=== PATIENT | female | born 1950 | race Caucasian/White ===

== ENCOUNTER → 2016-08-17 | Outpatient (CLI) | payer MEDICARE, OTHER ==
--- NOTE | 2016-08-17 10:34 | REP ---
Clinical: Sciatica. Technique: AP, lateral, bilateral oblique and coned-down views of the lumbosacral spine. Findings: Chronic levoconvex scoliosis is appreciated along with advanced multilevel degenerative changes including bridging osteophytes, endplate sclerosis/irregularity and disc space narrowing as well as hypertrophic facet changes. Alignment in the sagittal plane is maintained. There is no obvious acute fracture / compression injury or subluxation. Impression: Chronic levoconvex scoliosis and advanced multilevel degenerative disc osteophyte complexes.
== END ==
LOC: M CLY 09:34
PROVIDERS: ATTEND Nurse Practitioner
DX: M54.31 Sciatica, right side (principal); M41.9 Scoliosis, unspecified; M25.78 Osteophyte, vertebrae; Z23 Encounter for immunization
CPT/HCPCS: 72110; 90715; 90732; G0009

== ENCOUNTER → 2016-08-29 | Outpatient (REF) | payer MEDICARE, OTHER ==
[2016-08-29 17:16] LABS: MEAN CORPUSCULAR HEMOGLOBIN 29.2 pg (27.0-33.0); MEAN CORPUSCULAR HGB CONC 33.2 g/dl (32.0-36.5); MEAN CORPUSCULAR VOLUME 87.9 fl (80.0-96.0); WHITE BLOOD COUNT 6.2 K/mm3 (4.0-10.0)
[2016-08-29 17:45] LABS: ALBUMIN 3.6 GM/DL (3.2-5.2); ALBUMIN/GLOBULIN RATIO 1.16 (1.00-1.93); ALKALINE PHOSPHATASE 95 U/L (45-117); ALT/SGPT 37 U/L (12-78); ANION GAP 4 MEQ/L (8-16); AST/SGOT 19 U/L (15-37); BILIRUBIN,TOTAL 0.4 MG/DL (0.2-1.0); BLOOD UREA NITROGEN 15 MG/DL (7-18); CALCIUM LEVEL 9.7 MG/DL (8.8-10.2); CARBON DIOXIDE LEVEL 31 MEQ/L (21-32); CHLORIDE LEVEL 105 MEQ/L (98-107); CHOLESTEROL LEVEL 203 MG/DL (<200); CREATININE FOR GFR 0.69 MG/DL (0.55-1.02); GLOMERULAR FILTRATION RATE > 60.0 (>45); GLUCOSE, FASTING 100 MG/DL (80-110); POTASSIUM SERUM 4.4 MEQ/L (3.5-5.1); SODIUM LEVEL 140 MEQ/L (136-145); TOTAL PROTEIN 6.7 GM/DL (6.4-8.2); TRIGLYCERIDES LEVEL 262 MG/DL (<150)
== END ==
LOC: M SFHCCLAY 10:17
PROVIDERS: ATTEND Nurse Practitioner
DX: R53.83 Other fatigue (principal); Z79.899 Other long term (current) drug therapy

== ENCOUNTER → 2016-09-04 | Outpatient (CLI) | payer MEDICARE, OTHER ==
--- NOTE | 2016-09-04 15:15 | REPMRS ---
Patient History The patient states she has not had a clinical breast exam in over a year. Patient is postmenopausal. Family history of breast cancer in mother at age 80, pancreatic cancer in mother at age 95, breast cancer in maternal aunt at age 50 or over, and breast cancer in maternal aunt at age 75. Digital Woman Screen Mammo: September 04, 2016 - Exam #: [id number] Bilateral CC and MLO view(s) were taken. Technologist: Kimberlyn Foreman, Technologist Prior study comparison: January 29, 2015, digital woman screen mammo performed at [facility]. January 27, 2014, digital woman screen mammo performed at [facility]. FINDINGS: There are scattered fibroglandular densities. There has been no change in the appearance of the mammogram from the prior studies. There is a mild amount of residual fibroglandular tissue which is fairly symmetric. There is no interval development of dominant mass, architectural distortion, or clustered microcalcification suggestive of malignancy. ASSESSMENT: BI-RADS/ACR category 1 mammogram. Negative. Recommendation Routine screening mammogram in 1 year (for women over age 40). This mammogram was interpreted with the aid of an FDA-approved computer-aided dectection system. Electronically Signed By: Dilshad Hill MD 09/04/16 0680
== END ==
LOC: M WHC 13:30
PROVIDERS: ATTEND Nurse Practitioner
DX: Z12.31 Encounter for screening mammogram for malignant neoplasm of breast (principal); Z78.0 Asymptomatic menopausal state; Z80.3 Family history of malignant neoplasm of breast; Z80.0 Family history of malignant neoplasm of digestive organs

== ENCOUNTER → 2016-09-21 | Outpatient (CLI) | payer MEDICARE, OTHER ==
--- NOTE | 2016-09-21 12:39 | REP ---
Clinical: Cervical and thoracic pain. Technique: AP, lateral, flexion/extension, bilateral oblique, and open-mouth views of the cervical spine. Findings: Advanced multilevel degenerative changes include osteophytosis, endplate sclerosis/heterogeneity and disc space narrowing. Open mouth view demonstrates normal C1-C2 articulation and odontoid process. Oblique views demonstrate hypertrophic changes to the uncinate processes primarily at the C5-6, C6-7 levels. No acute fracture. Impression: Advanced multilevel degenerative disc osteophyte complexes.
--- NOTE | 2016-09-21 12:40 | REP ---
Clinical: Thoracic pain. Technique: AP, lateral and swimmer's views. Findings: Evaluation is limited by technique. Alignment and kyphosis maintained. Moderate to advanced degenerative changes include bridging osteophytes, endplate sclerosis and disc space narrowing throughout the visualized thoracic spine. No obvious compression fracture identified. Impression: Advanced multilevel degenerative changes.
== END ==
LOC: M CLY 11:27
PROVIDERS: ATTEND Nurse Practitioner
DX: M25.78 Osteophyte, vertebrae (principal); M54.6 Pain in thoracic spine
CPT/HCPCS: 72050; 72072; G0463

== ENCOUNTER → 2017-09-05 | Outpatient (CLI) | payer MEDICARE, OTHER | LOC: M WHC 12:50 | DX: Z12.31 Encounter for screening mammogram for malignant neoplasm of breast (principal); M81.0 Age-related osteoporosis without current pathological fracture | CPT/HCPCS: 77080 ==

== ENCOUNTER → 2017-09-12 | Outpatient (CLI) | payer MEDICARE, OTHER | LOC: M RAD 10:25 | DX: N63.22 Unspecified lump in the left breast, upper inner quadrant (principal); N64.1 Fat necrosis of breast | CPT/HCPCS: 77066 ==

== ENCOUNTER → 2018-02-20 | Outpatient (REF) | payer MEDICARE, OTHER | LOC: M LAB REF 12:24 | DX: N39.0 Urinary tract infection, site not specified (principal) | CPT/HCPCS: 87186 ==

== ENCOUNTER → 2018-02-25 | Outpatient (REF) | payer MEDICARE, OTHER | LOC: M SFHCCLAY 15:25 | DX: E78.5 Hyperlipidemia, unspecified (principal); R73.01 Impaired fasting glucose; Z53.8 Procedure and treatment not carried out for other reasons ==

== ENCOUNTER → 2018-02-27 | Outpatient (REF) | payer MEDICARE, OTHER ==
[2018-02-27 16:58] LABS: ALBUMIN 3.7 GM/DL (3.2-5.2); ALBUMIN/GLOBULIN RATIO 1.23 (1.00-1.93); ALKALINE PHOSPHATASE 97 U/L (45-117); ALT/SGPT 43 U/L (12-78); ANION GAP 5 MEQ/L (8-16); AST/SGOT 26 U/L (7-37); BILIRUBIN,TOTAL 0.6 MG/DL (0.2-1.0); BLOOD UREA NITROGEN 24 MG/DL (7-18); CALCIUM LEVEL 9.7 MG/DL (8.8-10.2); CARBON DIOXIDE LEVEL 32 MEQ/L (21-32); CHLORIDE LEVEL 102 MEQ/L (98-107); CHOLESTEROL LEVEL 188 MG/DL (<200); CHOLESTEROL RISK RATIO 5.529 (<5); CREATININE FOR GFR 0.69 MG/DL (0.55-1.30); GLOMERULAR FILTRATION RATE > 60.0 (>45); GLUCOSE, FASTING 92 MG/DL (70-100); HDL CHOLESTEROL 34 MG/DL (>40); LDL CHOLESTEROL 103 MG/DL (<100); NON-HDL-C 154 MG/DL; POTASSIUM SERUM 4.5 MEQ/L (3.5-5.1); SODIUM LEVEL 139 MEQ/L (136-145); TOTAL PROTEIN 6.7 GM/DL (6.4-8.2); TRIGLYCERIDES LEVEL 254 MG/DL (<150)
[2018-02-27 17:02] LABS: ESTIMATED AVERAGE GLUCOSE 134 MG/DL (60-110); HEMOGLOBIN A1c 6.3 %
== END ==
LOC: M SFHCCLAY 13:31
DX: R39.15 Urgency of urination (principal); E78.5 Hyperlipidemia, unspecified; R73.01 Impaired fasting glucose
CPT/HCPCS: 80053

== ENCOUNTER → 2018-03-29 | Outpatient (CLI) | payer MEDICARE, OTHER ==
--- NOTE | 2018-03-29 17:08 | REP ---
Digital diagnostic unilateral left breast mammography with CAD, 3-D tomosynthesis, and focused left breast sonography. History: Comparison mammography from September 12, 2017 was BIRADS category 3 because of an ill-defined parenchymal opacity with central fat density at the area of a palpable lump in this patient who is status post bilateral breast reduction mammoplasty. 6-month follow-up imaging was recommended. Comparison is also made with prior study from September 04, 2016. Findings: A skin marker is again affixed to the skin at the site of the palpable abnormality in the inferior and medial quadrant of the left breast. The associated parenchymal opacity visible on mammography has decreased in size and overall density. It still contains a fat density center and is consistent with benign fat necrosis. It has decreased in prominence. No new finding is seen. The left-sided mammographic views are otherwise unremarkable. Sonographic findings: Focused left breast sonography is performed at the site of the palpable lump. At 7 o'clock in the left breast there is a 1.1 x 1.1 x 1.1 cm hypoechoic area consistent with fat necrosis. This has decreased from previous measurements of 2.8 x 2.1 x 1.4 cm. Impression: BIRADS category 2 benign findings. Area of fat necrosis inferiorly and medially in the left breast regressing in size and appearance. Repeat bilateral screening mammography recommended in August 2018. BI-RADS/ACR category 2 mammogram. Benign finding(s). Routine annual screening mammography (for women over age 40). This mammogram was interpreted with the aid of an FDA-approved computer-aided detection system. The patient states she had a clinical breast exam in June 2017. The patient letter being requested is m#[id number]. Electronically Signed by Fabio Ibanez MD 03/29/2018 07:26 P
== END ==
LOC: M RAD 11:41
PROVIDERS: ATTEND Family Medicine
DX: R92.8 Other abnormal and inconclusive findings on diagnostic imaging of breast (principal)
CPT/HCPCS: 76642; 77065; G0279

== ENCOUNTER → 2018-05-28 | Outpatient (REF) | payer MEDICARE, OTHER ==
[2018-05-29 11:53] LABS: BASO # 0.1 10^3/uL (0.0-0.2); BASO % 0.6 % (0.0-1.0); EOS # 0.2 10^3/uL (0.0-0.50); EOS % 1.9 % (0.0-3.0); HEMATOCRIT 44.3 % (36.0-47.0); HEMOGLOBIN 14.3 g/dl (12.0-15.5); LYMPH # 2.2 10^3/uL (1.5-4.5); LYMPH % 20.8 % (24.0-44.0); MEAN CORPUSCULAR HEMOGLOBIN 28.5 pg (27.0-33.0); MEAN CORPUSCULAR HGB CONC 32.3 g/dl (32.0-36.5); MEAN CORPUSCULAR VOLUME 88.2 fl (80.0-96.0); MONO # 0.7 10^3/uL (0.0-0.8); NEUTROPHILS # 7.2 10^3/uL (1.8-7.7); NEUTROPHILS % 69.4 % (36.0-66.0); PLATELET COUNT, AUTOMATED 216 10^3/uL (150-450); RED BLOOD COUNT 5.02 10^6/uL (4.00-5.40); WHITE BLOOD COUNT 10.4 10^3/uL (4.0-10.0)
[2018-05-29 12:18] LABS: ERYTHROCYTE SEDIMENTATION RATE 28 mm/hr (0-30)
[2018-05-29 12:33] LABS: RHEUMATOID FACTOR QUANT < 10.0 IU/ML (<15.0)
[2018-06-01 00:06] LABS: ANA (HEP2) Negative (.); CYCLIC CITRULLINATED PEPTIDE 68 units (0-19); Lyme Disease IgG/IgM Antibodie <0.91 ISR (0.00-0.90); Lyme Disease IgM Ab Quantitati <0.80 index (0.00-0.79)
== END ==
LOC: M SFHCCLAY 15:35
PROVIDERS: ATTEND Family Medicine
DX: I10 Essential (primary) hypertension (principal); M48.062 Spinal stenosis, lumbar region with neurogenic claudication; M79.10 Myalgia, unspecified site
CPT/HCPCS: 84443; 85025; 85652; 86038; 86140; 86200; 86431; 86617; G0463

== ENCOUNTER 2018-07-12 13:36 | Inpatient (IN) | payer MEDICARE, OTHER ==
[~2018-07-12] VITALS: Ht 157.5 cm; Wt 107.3 kg
[2018-07-12] MEDS ORDERED: HYDR25TAB PO (14:12)
[2018-07-12] MEDS ORDERED: CETI10CH PO (14:12)
[2018-07-12] MEDS ORDERED: LIVA2TAB PO (14:12)
[2018-07-12] MEDS ORDERED: IRBE300T12 PO (14:13)
[2018-07-12] MEDS ORDERED: PARO20TA4 PO (14:13)
[2018-07-12] MEDS ORDERED: HYDR-3713 PO (14:13)
[2018-07-12] MEDS ORDERED: METO25TA4 PO (14:13)
[2018-07-12] MEDS ORDERED: ATIV1TAB10 PO (14:13)
[2018-07-12 14:32] LABS: BASO % 0.3 % (0.0-1.0); EOS % 0.2 % (0.0-3.0); HEMATOCRIT 41.3 % (36.0-47.0); HEMOGLOBIN 13.5 g/dl (12.0-15.5); LYMPH # 1.5 10^3/uL (1.5-4.5); LYMPH % 14.9 % (24.0-44.0); MEAN CORPUSCULAR HEMOGLOBIN 28.3 pg (27.0-33.0); MEAN CORPUSCULAR HGB CONC 32.7 g/dl (32.0-36.5); MEAN CORPUSCULAR VOLUME 86.6 fl (80.0-96.0); MONO # 0.5 10^3/uL (0.0-0.8); MONO % 5.4 % (0.0-5.0); NEUTROPHILS # 7.7 10^3/uL (1.8-7.7); NEUTROPHILS % 78.7 % (36.0-66.0); PLATELET COUNT, AUTOMATED 243 10^3/uL (150-450); RED BLOOD COUNT 4.77 10^6/uL (4.00-5.40); WHITE BLOOD COUNT 9.7 10^3/uL (4.0-10.0)
--- NOTE | 2018-07-12 14:45 | REP ---
Portable chest, 02:29 p.m., single AP view, the patient semi upright: There are no comparisons. The lung riojas are clear. The cardiac size is normal. The sivan, mediastinum, and skeletal structures are unremarkable. Impression: Negative portable chest. Electronically Signed by Dilshad Montana MD 07/12/2018 02:37 P
[2018-07-12 15:09] LABS: ACETAMINOPHEN LEVEL < 2.0 UG/ML (10.0-30.0); ALBUMIN 3.9 GM/DL (3.2-5.2); ALT/SGPT 46 U/L (12-78); BILIRUBIN,DIRECT 0.1 MG/DL (0.0-0.2); BILIRUBIN,TOTAL 0.4 MG/DL (0.2-1.0); BLOOD UREA NITROGEN 14 MG/DL (7-18); CALCIUM LEVEL 9.6 MG/DL (8.8-10.2); CARBON DIOXIDE LEVEL 26 MEQ/L (21-32); CHLORIDE LEVEL 108 MEQ/L (98-107); CPK CREATINE PHOSPHOKINASE 144 U/L (26-192); CREATININE FOR GFR 0.69 MG/DL (0.55-1.30); ETHYL ALCOHOL (ETHANOL) < 0.003 % (0.000-0.010); GLOMERULAR FILTRATION RATE > 60.0 (>45); GLUCOSE, FASTING 118 MG/DL (70-100); POTASSIUM SERUM 3.8 MEQ/L (3.5-5.1); SALICYLATE LEVEL < 1.7 MG/DL (5.0-30.0); SODIUM LEVEL 141 MEQ/L (136-145)
[2018-07-12 15:15] LABS: AMPHETAMINES LEVEL URINE NEGATIVE (NEGATIVE); BARBITURATES URINE NEGATIVE (NEGATIVE); BENZODIAZEPINES URINE NEGATIVE (NEGATIVE); CANNABINOIDS URINE NEGATIVE (NEGATIVE); COCAINE METABOLITE URINE NEGATIVE (NEGATIVE); METHADONE URINE NEGATIVE (NEGATIVE); OPIATES URINE NEGATIVE (NEGATIVE); PHENCYCLIDINE URINE NEGATIVE (NEGATIVE)
[2018-07-12] MEDS ORDERED: LORazepam 1 MG TAB PO PRN (16:00)
[2018-07-12] MEDS ORDERED: IRBE300T10 PO (16:29)
[2018-07-12] MEDS ORDERED: CINN500C15 PO (16:29)
[2018-07-12] MEDS ORDERED: SB A10TA4 PO (16:29)
[2018-07-12] MEDS ORDERED: CRAN400C PO (16:29)
[2018-07-12] MEDS ORDERED: FLON1SPR NARES (16:29)
[2018-07-12] MEDS ORDERED: LOVA1CAP17 PO (16:29)
[2018-07-12] MEDS ORDERED: METOPROLOL TART 25 MG TABLET PO ONE (16:30)
[2018-07-12] MEDS: IRBESARTAN 150 MG TAB PO ONE ×2 (16:57→16:59)
[2018-07-12] MEDS ORDERED: VITAD1000T PO (18:10)
[2018-07-12] MEDS ORDERED: zolPIDEM TARTRATE 5 MG TAB PO PRN (18:45)
[2018-07-12] MEDS ORDERED: amLODIPine 10 MG TAB PO ONE (19:00)
--- NOTE | 2018-07-12 19:37 | ECGEPIP ---
Stationary ECG Study [facility] - ED Test Date: 2018-07-12 Pat Name: KRYSTINA DEGROOT Department: Room: - Gender: F Personnel Director: TC : 1950 Requested By: SAI Kinney Order Number: [id number] Reading MD: Liset Nevarez Measurements Intervals Richardson Rate: 95 P: 17 HI: 173 QRS: -4 QRSD: 94 T: 25 QT: 306 QTc: 385 Interpretive Statements SINUS RHYTHM MODERATE VOLTAGE CRITERIA FOR LVH, CONSIDER NORMAL VARIANT NONSPECIFIC T-WAVE ABNORMALITY CW 01/17/[address] T WAVE CHANGES Electronically Signed On 07-12-2018 19:37:14 EDT by Liset Nevarez
--- NOTE | 2018-07-12 20:22 | HPE ---
DATE OF ADMISSION: 07/12/2018 CHIEF COMPLAINT: Suicide attempt. Intentional drug overdose with Paxil. HISTORY OF PRESENT ILLNESS: This is a 67-year-old female with past medical history significant for depression, hypertension, hyperlipidemia, impaired fasting glucose and allergic rhinitis, presents to the emergency room, brought in by EMS and family due to attempted suicide attempt with Paxil. Patient has been having significant family turmoil for the past few months. According to her, she has been having a strange relationship with her children and have not been able to see their grandchildren for the past four months. The patient has encouraged the to go through counseling to repair these relationships, however, he has been resistant and despite trying, patient's has been very tightlipped and not cooperative. This has led to daily arguments and oftentimes the does not say anything which further frustrates the . Also, the had been the primary caregiver for her mother who had recently passed about a month ago. She had dedicated a Pixt[employer] service to her mother last evening and wanted the to come with her. During the argument, the had become much more withdrawn. They had further discussed if they should separate. He would like to take the dog and she would take the cats. The patient was extremely upset when at 6:30 the was not dressed to go to the mass for her mother and encouraged him to accompany her. She felt very bad that she had to go alone and was extremely upset and told him that he was hurting her emotionally. The patient then returned to her house and found her 's keys around 6:30 and wallet without the transit driver's license. The patient's could not be found anywhere. He left a note for her saying that he was sorry that it had to end this way. Patient became worried and went to the neighbor across the street. They started to look around the house, but could not find him or the dog. The neighbor asked the patient to call 911. Several patrol cars came to the residence and could not find the patient's . Into the night, she was told that they would use blood hounds and that they would go out again in search in the morning. However, the police did find her in a field across the street from their residence. He was found to have shot the dog with a pistol and also shot himself. This was then relayed to the patient who was surrounded by her family, her two sons, her sister, and her two [id number]. At that point she felt like she wanted to with him and decided to go into the room and take the narcotics that were left over from her past previous surgeries. The patient could not find the bottle and therefore found Paxil. She was followed by her son who grabbed her by the throat and scraped the pills off her tongue before she could swallow and ingest any of the Paxil pills. She was subsequently brought to the emergency room for admission for suicide attempt by intentional Paxil overdose. In the ER her vitals were stable. She was noted to have high blood pressure and hysterical crying, blaming herself and saying that it was her fault that her shot himself with a gun as well as shooting the dog. Her blood pressure was 197/88. She was subsequently given her home medications of metoprolol and Avapro with subsequent improvement in her blood pressure to 157/75. The patient remains tearful and admitted to wanting to continually try to harm herself "so I can join my ". When asked if she had a good support system, she said "my children have their own lives. They do not need me. No one needs me. I need to join my ". At this point, a phone call out to the psychiatrist medication nurse, Dr. Fany Pandya has been made. He will be seeing the patient in consult. She will be admitted to the medical floor for observation overnight with a sitter. Her sister would like to stay with her overnight as well. Patient denies any homicidal ideation, but is still making suicidal statements without a definite suicidal plan. PAST MEDICAL HISTORY: Hypertension. Hyperlipidemia. Impaired glucose. Allergic rhinitis. Obesity. BMI 43.3. ALLERGIES: ATIVAN causing hyperactivity. ATORVASTATIN causing myalgia. SIMVASTATIN causing myalgia. CRESTOR causing myalgia. PAST SURGICAL HISTORY: Tonsillectomy. Tubal ligation. Bartholin's cyst removal. Ganglion cyst. D and C times two. Colonoscopy 2009. Breast reduction 2016. HOME MEDICATIONS: Please see below. FAMILY HISTORY: age 67 father with lung cancer and myocardial infarction ([place]). Mother age 95 pancreatic cancer, diagnosed with hypertension. Siblings, one diagnosed with hypertension and coronary artery disease. Sons are alive. She has one sister and three sons. SOCIAL HISTORY: Patient previously lived with her who has killed himself yesterday. She is a nonsmoker. Does not drink any alcohol. No E-cigarettes. She is retired. REVIEW OF SYSTEMS: Negative 12 point systems reviewed aside from positive findings in HPI. Patient has no complaints of palpitations, nausea, vomiting, diarrhea. PHYSICAL EXAMINATION: Temperature 98.3, pulse 74, respiratory rate 16, blood pressure 165/81, 94% on 1 liter nasal cannula. GENERAL: Patient is in no respiratory distress. She is grieving and crying at the bedside. HEENT: Pupils are round and reactive. Not dilated. Patient could not participate with extraocular muscle testing as she is extremely upset. There is no nasal flaring or use of respiratory accessory muscles. No jugular venous distention. She has dry mucous membranes. NECK: Supple. LUNGS: Clear to auscultation. No wheezing, rales or rhonchi. HEART: S1, S2, sinus rhythm. No murmurs, rubs or gallops. ABDOMEN: Obese. Soft, nontender. Nondistended. Normoactive bowel sounds. No hepatosplenomegaly. No abdominal bruits. EXTREMITIES: No cyanosis, clubbing or any pitting edema. NEUROLOGICAL: Patient is awake, alert and oriented times three. Was able to provide the entire history. There is no facial asymmetry. Speech is fluent. No myoclonus or hyperreflexia. No rigidity or trismus. LABORATORY DATA: White count 9.7, hemoglobin 13, hematocrit 41, platelet count 242. Neutrophils 78. Monocytes 5.4, lymphocytes 14.9. Sodium 141, potassium 3.8, chloride 108, bicarbonate 26, BUN 14, creatinine 0.67. Glucose 118. Calcium 9.6. Total bilirubin 0.4. Direct bilirubin 0.1. AC 25, LD 46, alkaline phosphatase 100, total CK 144. Total protein 7, albumin 3.9. TSH 1.15. ASSESSMENT AND PLAN: 1. Suicide attempt with intentional drug overdose. Patient's son was able to remove all pills. The patient did not ingest any of the Paxil medications. Clinically speaking, she is not exhibiting any lethargy, any confusion, was able to provide entire history. She had no hyperthermia, tachycardia, no diaphoresis, nausea, vomiting, diarrhea or dilated pupils. Patient was not agitated. She was not lethargic. On physical exam had no myoclonus or hyperreflexia, rigidity or trismus. At this time she is admitted to telemetry unit with a sitter. 2. Supposed Paxil overdose per the history. In the patient and son's interview, the patient did not ingest any Paxil medication during the suicide attempt. Clinically, she is not exhibiting any neurovascular or autonomic instability at this time. By itself paroxetine has rarely been shown to cause serotonin syndrome, but she will be monitored on the medical floor for the next 24 hours with a sitter and telemetry. 3. Severe depression and grieving secondary to 's traumatic suicide. Patient will be evaluated by psychiatrist, Dr. Fany Pandya and most likely will need inpatient mental health unit admission. At this time, she is at risk of doing harm to herself and a sitter has been provided. Family is available at this time to be supportive. The patient's sister says that she can live with her once the patient is deemed clinically and psychiatrically clear. 4. Deep venous thrombosis (DVT) prophylaxis with compression stockings. 5. Hypertension. Uncontrolled, secondary to emotional stress. She has been resumed on her home dose of Avapro and metoprolol. Norvasc will be given for her comfort and will be provided Ativan and xanax for anxiety. [facility]
[2018-07-12] MEDS: METOPROLOL TART 25 MG TABLET PO SCH (20:24)
[2018-07-12 22:10] VITALS: BP 166/76
[2018-07-13] MEDS: ALPRAZolam 0.25 MG TAB PO PRN ×2 (03:13→12:26)
[2018-07-13 06:00] VITALS: BP 137/66
[2018-07-13 07:19] LABS: ALBUMIN 3.4 GM/DL (3.2-5.2); ALT/SGPT 43 U/L (12-78); BILIRUBIN,TOTAL 0.6 MG/DL (0.2-1.0); BLOOD UREA NITROGEN 14 MG/DL (7-18); CALCIUM LEVEL 8.7 MG/DL (8.8-10.2); CARBON DIOXIDE LEVEL 28 MEQ/L (21-32); CHLORIDE LEVEL 107 MEQ/L (98-107); CREATININE FOR GFR 0.64 MG/DL (0.55-1.30); GLOMERULAR FILTRATION RATE > 60.0 (>45); GLUCOSE, FASTING 118 MG/DL (70-100); POTASSIUM SERUM 3.7 MEQ/L (3.5-5.1); SODIUM LEVEL 141 MEQ/L (136-145); TOTAL PROTEIN 6.6 GM/DL (6.4-8.2)
[2018-07-13] MEDS: CHLORTHALIDONE 25 MG TAB PO SCH (07:52)
[2018-07-13] MEDS: IRBESARTAN 150 MG TAB PO SCH (07:52)
[2018-07-13] MEDS: METOPROLOL TART 25 MG TABLET PO SCH ×2 (07:53→22:02)
[2018-07-13] MEDS ORDERED: amLODIPine 5 MG TAB PO SCH (09:00)
[2018-07-13] MEDS: CETIRIZINE (ZyrTEC) 10 MG TAB PO SCH (09:00)
[2018-07-13] MEDS: **hydrALAZINE** 10 MG TAB PO SCH ×2 (12:00→17:59)
[2018-07-13] MEDS ORDERED: PILL CRUSHER/CUTTER 1 EACH XX PRN (12:15)
[2018-07-13] MEDS ORDERED: FLUTICASONE PROP 0.05% NASAL SPRAY 16 GM (FLONASE) NARES PRN (12:15)
--- NOTE | 2018-07-13 12:17 | IPNPDOC ---
Date Seen The patient was seen on 07/13/18. Progress Note SUBJECTIVE: Pt slept well. She says,"I have to move on. My sister can help me find an apartment in [place], because we might get into each other's nerves sometimes. It's too much to stay near the water in [place]. I have to give that up." She denies any homicidal or suicidal plans. Sitter and pt's sister at the bedside. "I want to go home." PHYSICAL EXAMINATION: VITALS: PLS SEE BELOW GENERAL: Patient is in no respiratory distress. AAO x 3 HEENT: Pupils are round and reactive. Not dilated. There is no nasal flaring or use of respiratory accessory muscles. No jugular venous distention. NECK: Supple. LUNGS: Clear to auscultation. No wheezing, rales or rhonchi. HEART: S1, S2, sinus rhythm. No murmurs, rubs or gallops. ABDOMEN: Obese. Soft, nontender. Nondistended. Normoactive bowel sounds. No hepatosplenomegaly. No abdominal bruits. EXTREMITIES: No cyanosis, clubbing or any pitting edema. NEUROLOGICAL: Patient is awake, alert and oriented times three. Was able to provide the entire history. There is no facial asymmetry. Speech is fluent. No myoclonus or hyperreflexia. No rigidity or trismus. LABORATORY DATA, IMAGING STUDIES, MICROBIOLOGY: PLS SEE BELOW ASSESSMENT AND PLAN: This is a 67-year-old female with past medical history significant for depression, hypertension, hyperlipidemia, impaired fasting glucose and allergic rhinitis, presents to the emergency room, brought in by EMS and family due to attempted suicide attempt with Paxil. Patient has been having significant family turmoil for the past few months. According to her, she has been having a strange relationship with her children and have not been able to see their grandchildren for the past four months. The patient has encouraged the to go through counseling to repair these relationships, however, he has been resistant and despite trying, patient's has been very tightlipped and not cooperative. This has led to daily arguments and oftentimes the does not say anything which further frustrates the . Also, the had been the primary caregiver for her mother who had recently passed about a month ago. She had dedicated a mass service to her mother last evening and wanted the to come with her. During the argument, the had become much more withdrawn. They had further discussed if they should separate. He would like to take the dog and she would take the cats. The patient was extremely upset when at 6:30 the was not dressed to go to the [facility] for her mother and encouraged him to accompany her. She felt very bad that she had to go alone and was extremely upset and told him that he was hurting her emotionally. The patient then returned to her house and found her 's keys around 6:30 and wallet without the route driver coin machines's license. The patient's could not be found anywhere. He left a note for her saying that he was sorry that it had to end this way. Patient became worried and went to the neighbor across the street. They started to look around the house, but could not find him or the dog. The neighbor asked the patient to call 911. Several patrol cars came to the residence and could not find the patient's . Into the night, she was told that they would use blood hounds and that they would go out again in search in the morning. However, the police did find her in a field across the street from their residence. He was found to have shot the dog with a pistol and also shot himself. This was then relayed to the patient who was surrounded by her family, her two sons, her sister, and her two [id number]. At that point she felt like she wanted to with him and decided to go into the room and take the narcotics that were left over from her past previous surgeries. The patient could not find the bottle and therefore found Paxil. She was followed by her son who grabbed her by the throat and scraped the pills off her tongue before she could swallow and ingest any of the Paxil pills. She was subsequently brought to the emergency room for admission for suicide attempt by intentional Paxil overdose. In the ER her vitals were stable. She was noted to have high blood pressure and hysterical crying, blaming herself and saying that it was her fault that her shot himself with a gun as well as shooting the dog. Her blood pressure was 197/88. She was subsequently given her home medications of metoprolol and Avapro with subsequent improvement in her blood pressure to 157/75. The patient remains tearful and admitted to wanting to continually try to harm herself "so I can join my ". When asked if she had a good support system, she said "my children have their own lives. They do not need me. No one needs me. I need to join my ". At this point, a phone call out to the psychiatrist global implementation manager, Dr. Fany Pandya has been made. He will be seeing the patient in consult. She will be admitted to the medical floor for observation overnight with a sitter. Her sister would like to stay with her overnight as well. Patient denies any homicidal ideation, but is still making suicidal statements without a definite suicidal plan. Suicide attempt with intentional drug overdose. Patient's son was able to remove all pills. The patient did not ingest any of the Paxil medications. Clinically speaking, she is not exhibiting any lethargy, any confusion, was able to provide entire history. She had no hyperthermia, tachycardia, no diaphoresis, nausea, vomiting, diarrhea or dilated pupils. Patient was not agitated. She was not lethargic. On physical exam had no myoclonus or hyperreflexia, rigidity or trismus. At this time she is admitted to telemetry unit with a sitter. Attempted Intentional Paroxetine ingestion. Per the patient and son's interview, the patient did not ingest any Paxil medication during the suicide attempt. Clinically, she is not exhibiting any neurovascular or autonomic instability at this time. By itself paroxetine has rarely been shown to cause serotonin syndrome, but she will be monitored on the medical floor for the next 24 hours with a sitter . Severe depression and grieving secondary to 's traumatic suicide. Patient will be evaluated by psychiatrist, Dr. Fany Pandya and most likely will need inpatient mental health unit admission. At this time, she is at risk of doing harm to herself and a sitter has been provided. Family is available at this time to be supportive. The patient's sister says that she can live with her once the patient is deemed clinically and psychiatrically clear. Deep venous thrombosis (DVT) prophylaxis with compression stockings. Hypertension. Uncontrolled, secondary to emotional stress. She has been resumed on her home dose of Avapro and metoprolol. Norvasc will be given for her comfort and will be provided Ativan and xanax for anxiety. disposition: awaiting psychiatric eval. [facility] admission VS, I&O, 24H, Saeed Vital Signs/I&O Vital Signs Date Time Temp Pulse Resp B/P (MAP) Pulse Ox O2 Delivery O2 Flow Rate FiO2 07/13/18 07:53 77 178/88 07/13/18 06:00 98.0 17 99 07/12/18 21:45 Room Air I&O- Last 24 Hours up to 6 AM 07/13/18 06:00 Intake Total 0 ml Output Total 0 ml Balance 0 ml Laboratory Data 24H LABS Laboratory Tests 2 07/12/18 14:19: Immature Granulocyte % (Auto) 0.5, White Blood Count 9.7, Red Blood Count 4.77, Hemoglobin 13.5, Hematocrit 41.3, Mean Corpuscular Volume 86.6, Mean Corpuscular Hemoglobin 28.3, Mean Corpuscular Hemoglobin Concent 32.7, Red Cell Distribution Width 13.6, Platelet Count 243, Neutrophils (%) (Auto) 78.7H, Lymphocytes (%) (Auto) 14.9L, Monocytes (%) (Auto) 5.4H, Eosinophils (%) (Auto) 0.2, Basophils (%) (Auto) 0.3, Neutrophils # (Auto) 7.7, Lymphocytes # (Auto) 1.5, Monocytes # (Auto) 0.5, Eosinophils # (Auto) 0.0, Basophils # (Auto) 0.0, Nucleated Red Blood Cells % (auto) 0.0, Urine Color YELLOW, Urine Appearance CLEAR, Urine pH 6.0, Urine Specific [place] 1.023, Urine Protein NEGATIVE, Urine Glucose (UA) NEGATIVE, Urine Ketones NEGATIVE, Urine Blood NEGATIVE, Urine Nitrite NEGATIVE, Urine Bilirubin NEGATIVE, Urine Urobilinogen 0.2, Urine Leukocyte Esterase TRACEH, Urine WBC (Auto) 5H, Urine RBC (Auto) 2, Urine Hyaline Casts (Auto) 0, Urine Bacteria (Auto) NEGATIVE, Urine Squamous Epithelial Cells 0, Urine Mucus (Auto) SMALL, Urine Sperm (Auto) , Anion Gap 7L, Glomerular Filtration Rate > 60.0, Calcium Level 9.6, Aspartate Amino Transf (AST/SGOT) 25, Alanine Ami notransferase (ALT/SGPT) 46, Alkaline Phosphatase 100, Total Bilirubin 0.4, Direct Bilirubin 0.1, Total Creatine Kinase 144, Total Protein 7.0, Albumin 3.9, Albumin/Globulin Ratio 1.26, Thyroid Stimulating Hormone (TSH) 1.150, Salicylates Level < 1.7L, Urine Amphetamines Screen NEGATIVE, Urine Benzo diazepines Screen NEGATIVE, Urine Opiates Screen NEGATIVE, Urine Methadone Screen NEGATIVE, Acetaminophen Level < 2.0L, Urine Barbiturates Screen NEGATIVE, Urine Phencyclidine Screen NEGATIVE, Urine Cocaine Metabolite Screen NEGATIVE, Urine Cannabinoids Screen NEGATIVE, Ethyl Alcohol Level < 0.003 07/13/18 06:29: Anion Gap 6L, Glomerular Filtration Rate > 60.0, Calcium Level 8.7L, Aspartate Amino Transf (AST/SGOT) 23, Alanine Aminotransferase (ALT/SGPT) 43, Alkaline Phosphatase 87, Total Bilirubin 0.6, Total Protein 6.6, Albumin 3.4, Albumin/Globulin Ratio 1.06, Blood Urea Nitrogen 14, Creatinine 0.64, Sodium Level 141, Potassium Level 3.7, Chloride Level 107, Carbon Dioxide Level 28 CBC/BMP Laboratory Tests 07/12/18 14:19 Red Blood Count 4.77, Mean Corpuscular Volume 86.6, Mean Corpuscular Hemoglobin 28.3, Mean Corpuscular Hemoglobin Concent 32.7, Red Cell Distribution Width 13.6, Neutrophils (%) (Auto) 78.7 H, Lymphocytes (%) (Auto) 14.9 L, Monocytes (%) (Auto) 5.4 H, Eosinophils (%) (Auto) 0.2, Basophils (%) (Auto) 0.3, Neutrophils # (Auto) 7.7, Lymphocytes # (Auto) 1.5, Monocytes # (Auto) 0.5, Eosinophils # (Auto) 0.0, Basophils # (Auto) 0.0 07/13/18 06:29 Calcium Level 8.7 L, Aspartate Amino Transf (AST/SGOT) 23, Alanine Aminotransferase (ALT/SGPT) 43, Alkaline Phosphatase 87, Total Bilirubin 0.6, Total Protein 6.6, Albumin 3.4 Microbiology Microbiology 07/12/18 Urine Culture - Final, Complete GAIL DENNISON MD Jul 13, 2018 12:17
[2018-07-13] MEDS ORDERED: cloNIDine 0.1 MG TAB PO ONE (12:30)
[2018-07-13] MEDS ORDERED: amLODIPine 10 MG TAB PO ONE (12:30)
[2018-07-13] MEDS ORDERED: amLODIPine 5 MG TAB PO ONE (12:45)
[2018-07-13 13:30] VITALS: BP 170/100
[2018-07-13 15:39] VITALS: BP 160/100
[2018-07-13 15:49] VITALS: BP 120/64
--- NOTE | 2018-07-13 18:22 | ECGEPIP ---
Stationary ECG Study [facility] Test Date: 2018-07-13 Pat Name: KRYSTINA DEGROOT Department: Room: [place] [address] Gender: F Behavioral Health Care Manager: TALISHA : 1950 Requested By: GAIL Ferrer Order Number: [id number] Reading MD: Levi Grant Measurements Intervals [place] Rate: 69 P: 29 OK: 159 QRS: -7 QRSD: 95 T: 31 QT: 387 QTc: 417 Interpretive Statements SINUS RHYTHM Left ventricular hypertrophy BY ANDREAS Farfan from earlier same day Electronically Signed On 07-13-2018 18:22:09 EDT by Levi Grant
[2018-07-13 22:00] VITALS: BP 157/73
[2018-07-14] MEDS: ALPRAZolam 0.25 MG TAB PO PRN (01:57)
[2018-07-14] MEDS: **hydrALAZINE** 10 MG TAB PO SCH ×3 (05:25→12:00)
[2018-07-14 06:00] VITALS: BP 141/72
[2018-07-14] MEDS: CETIRIZINE (ZyrTEC) 10 MG TAB PO SCH (08:36)
[2018-07-14 08:41] VITALS: BP 142/70
[2018-07-14] MEDS: IRBESARTAN 150 MG TAB PO SCH (08:41)
[2018-07-14] MEDS: METOPROLOL TART 25 MG TABLET PO SCH (08:41)
[2018-07-14] MEDS: CHLORTHALIDONE 25 MG TAB PO SCH (08:41)
[2018-07-14] MEDS ORDERED: amLODIPine 10 MG TAB PO SCH (09:00)
[2018-07-14 12:37] VITALS: BP 154/76
[2018-07-14] MEDS ORDERED: HYDR-3910 PO (12:42)
--- NOTE | 2018-07-14 13:30 | IPNPDOC ---
Date Seen The patient was seen on 07/14/18. Progress Note SUBJECTIVE: Awaiting discharge recommendations from Dr. Pandya. Per pt, she was to be discharged home with her sister, and will be remaining here [facility] for a few days to make arrangements with family. Pt will be supervised by her sister 16/10 , and will eventually move to [place] with her sister. She denies any headache. no suicidal plan. She c/o insomnia withno relief with ambien. She has had a paradoxical reaction to ativan causing hyperactivity. She is requesting something to relax her and to sleep. PHYSICAL EXAMINATION: VITALS: PLS SEE BELOW GENERAL: Patient is in no respiratory distress. AAO x 3 HEENT: Pupils are round and reactive. Not dilated. There is no nasal flaring or use of respiratory accessory muscles. No jugular venous distention. NECK: Supple. LUNGS: Clear to auscultation. No wheezing, rales or rhonchi. HEART: S1, S2, sinus rhythm. No murmurs, rubs or gallops. ABDOMEN: Obese. Soft, nontender. Nondistended. Normoactive bowel sounds. No hepatosplenomegaly. No abdominal bruits. EXTREMITIES: No cyanosis, clubbing or any pitting edema. NEUROLOGICAL: Patient is awake, alert and oriented times three. Was able to provide the entire history. There is no facial asymmetry. Speech is fluent. No myoclonus or hyperreflexia. No rigidity or trismus. LABORATORY DATA, IMAGING STUDIES, MICROBIOLOGY: PLS SEE BELOW ASSESSMENT AND PLAN: This is a 67-year-old female with past medical history significant for depression, hypertension, hyperlipidemia, impaired fasting glucose and allergic rhinitis, presents to the emergency room, brought in by EMS and family due to attempted suicide attempt with Paxil. Patient has been having significant family turmoil for the past few months. According to her, she has been having a strange relationship with her children and have not been able to see their grandchildren for the past four months. The patient has encouraged the to go through counseling to repair these relationships, however, he has been resistant and despite trying, patient's has been very tightlipped and not cooperative. This has led to daily arguments and oftentimes the does not say anything which further frustrates the . Also, the had been the primary caregiver for her mother who had recently passed about a month ago. She had dedicated a mass service to her mother last evening and wanted the to come with her. During the argument, the had become much more withdrawn. They had further discussed if they should separate. He would like to take the dog and she would take the cats. The patient was extremely upset when at 6:30 the was not dressed to go to the mass for her mother and encouraged him to accompany her. She felt very bad that she had to go alone and was extremely upset and told him that he was hurting her emotionally. The patient then returned to her house and found her 's keys around 6:30 and wallet without the hook up driver's license. The patient's could not be found anywhere. He left a note for her saying that he was sorry that it had to end this way. Patient became worried and went to the neighbor across the street. They started to look around the house, but could not find him or the dog. The neighbor asked the patient to call 911. Several patrol cars came to the residence and could not find the patient's . Into the night, she was told that they would use blood hounds and that they would go out again in search in the morning. However, the police did find her in a field across the street from their residence. He was found to have shot the dog with a pistol and also shot himself. This was then relayed to the patient who was surrounded by her family, her two sons, her sister, and her two [id number]. At that point she felt like she wanted to with him and decided to go into the room and take the narcotics that were left over from her past previous surgeries. The patient could not find the bottle and therefore found Paxil. She was followed by her son who grabbed her by the throat and scraped the pills off her tongue before she could swallow and ingest any of the Paxil pills. She was subsequently brought to the emergency room for admission for suicide attempt by intentional Paxil overdose. In the ER her vitals were stable. She was noted to have high blood pressure and hysterical crying, blaming herself and saying that it was her fault that her shot himself with a gun as well as shooting the dog. Her blood pressure was 197/88. She was subsequently given her home medications of metoprolol and Avapro with subsequent improvement in her blood pressure to 157/75. The patient remains tearful and admitted to wanting to continually try to harm herself "so I can join my ". When asked if she had a good support system, she said "my children have their own lives. They do not need me. No one needs me. I need to join my ". At this point, a phone call out to the psychiatrist video production assistant, Dr. Fany Pandya has been made. He will be seeing the patient in consult. She will be admitted to the medical floor for observation overnight with a sitter. Her sister would like to stay with her overnight as well. Patient denies any homicidal ideation, but is still making suicidal statements without a definite suicidal plan. Suicide attempt with intentional drug overdose. Patient's son was able to remove all pills. The patient did not ingest any of the Paxil medications. Clinically speaking, she is not exhibiting any lethargy, any confusion, was able to provide entire history. She had no hyperthermia, tachycardia, no diaphoresis, nausea, vomiting, diarrhea or dilated pupils. Patient was not agitated. She was not lethargic. On physical exam had no myoclonus or hyperreflexia, rigidity or trismus. At this time she is admitted to telemetry unit with a sitter. Attempted Intentional Paroxetine ingestion. Per the patient and son's interview, the patient did not ingest any Paxil medication during the suicide attempt. Clinically, she is not exhibiting any neurovascular or autonomic instability at this time. By itself paroxetine has rarely been shown to cause serotonin syndrome, but she will be monitored on the medical floor for the next 24 hours with a sitter . Severe depression and grieving secondary to 's traumatic suicide. Patient will be evaluated by psychiatrist, Dr. Fany Pandya and most likely will need inpatient mental health unit admission. At this time, she is at risk of doing harm to herself and a sitter has been provided. Family is available at this time to be supportive. The patient's sister says that she can live with her once the patient is deemed clinically and psychiatrically clear. Insomnia failed on ambien. will need to discuss with psychiatrist if pt is mentally st able to be given a few days supply of meds. Anxiety has had a paradoxical reaction to ativan causing hyperactivity. Deep venous thrombosis (DVT) prophylaxis with compression stockings. Hypertension. Uncontrolled, secondary to emotional stress. She has been resumed on her home dose of Avapro and metoprolol. Norvasc will be given for her comfort and will be provided Ativan and xanax for anxiety. disposition: awaiting psychiatricrecommendations VS, I&O, 24H, Fishbone Vital Signs/I&O Vital Signs Date Time Temp Pulse Resp B/P (MAP) Pulse Ox O2 Delivery O2 Flow Rate FiO2 07/14/18 12:37 154/76 (102) 07/14/18 08:41 63 07/14/18 06:00 96.7 16 94 07/12/18 21:45 Room Air I&O- Last 24 Hours up to 6 AM 07/14/18 06:00 Intake Total 1080 ml Balance 1080 ml Laboratory Data Microbiology Microbiology 07/12/18 Urine Culture - Final, Complete GAIL DENNISON MD Jul 14, 2018 13:30
--- NOTE | 2018-07-14 13:45 | MHCR ---
DATE OF CONSULTATION: 07/13/2018 CHIEF COMPLAINT: She has felt distressed. SUBJECTIVE: She is 67 years old. She was to her for almost 50 years, he yesterday, and she came in the aftermath of that . Chart is reviewed, patient is interviewed, I also interviewed her sons, Yao and Kennedy, who were here, interviewed them separately. I later interviewed the patient's sister, Clary Lyle, as well, she came in later, again separately. History was also obtained from Dr. Santacruz at length. She and her have been together for many years, she says they had become somewhat more distant over the last few years, she felt he was not engaged with her, more withdrawn, and this had been ongoing, and says they talked about it, about improving their relationship. She feels she made quite a few efforts with varying success, and recently she had organized a service for her mother, who about or so ago, she was in her 90s. She says she had wanted her to attend the service, he suggested he was not sure that it was on, and she said she was upset with his not attending, and she went alone, felt hurt. Upon her return, found that her 's keys were there and wallet, but without the courier delivery driver's license, he could not be found anywhere. She then started looking around the house, could not find their dog either. She called her sons, and her sister, who live in the [facility], and a neighbor came over, they decided to call the police. She then found a note from her , which alluded to his going to take his life. Says a search went on for him the better part of the night. Her sons were there by then, and in the morning, the police found the in a field nearby, he had shot the dog and then killed himself. When that was confirmed, she was informed about it, she became quite agitated, this is when she was at home, and indicated wanting to , and attempted looking for pills, and could not find the bottle, then found a bottle of Paxil. She tried swallowing that, but her son, who was following her, says he swiped them from her mouth, she apparently did not swallow any. At around that time, the other son was talking to the police regarding their father's , and then informed them of the jamie on, and his mother's attempt to take an overdose. Police came and also encouraged her to come here. She was seen by the emergency room physician, and as there were concerns about the possibility of the overdose, was admitted to medicine, and is in Dr. Santacruz's care. Blood pressure was high, but they improved. She remained tearful and indicated wanted to . She said she wanted to join her , and that the children have their own lives. She says she and her had been having difficulties the last few years, and that they had moved over to this area, [place], from [facility] about 8 years or so ago. He was working in the [employer], he was a , and she says he decided to retire, some time last year, and they were concerned about the future, including financially, but things settled. Says she was looking forward to going on trips, various places, with him, but that he did not seem to be interested. She says attempts to engage him were not very successful, and it would lead to arguments. Says she would see the contrast when he was engaged with work where he appeared quite engaged with clients, etc. Further to this, says they were a close family, but that there was quite a disagreement last Evon. Says her sons, she has three sons, [id number], all visiting, and patient, her had requested spending some time, coming summer, with the grandchildren. Says one of the [id number] was quite upset, things became heated, and she feels over relatively trivial matter, and escalated to the point where the children and their families left the patient's place. Says this happened in front of the patient's grandchildren. Says this upset her and her , and attempts were made by her to reach out, reaching out to her children were essentially not reciprocated. Says this was quite painful, she made attempts, including over their birthdays within the last month or two, no acknowledgement of such, and on one occasion, she says one of their sons agreed to meet them at a third venue. She says she went, met with the son, she felt things may begin to improve, but that they had not. She is further saddened by the fact that her sons had not seen their father since Evon, when they had had the disagreement and fight. This has added further to the pain, given yesterday. She has three sons, two are here, they live in the [facility] area. The third son lives in [place]. He is returning from vacation, she has not spoken to him since her 's . She plans to see him in the next day or two. She says she plans to dispose of the house in [place], and move with her sister to [place], to their childhood home, where her sister lives. Says plans to do that in the near future, and then possibly look for a place of her own if need be. Says she and her had suggested that the surviving person move away from the area. Says has support in the local community where she lives, particularly the gnosticism community, and other local friends. Has a friend coming up from out of state at the end of next week, lives in [facility], says has a couple of her in-laws in the [facility] as well. She indicates she has no desire to kill herself and that she is not sure if she would have swallowed the pills even if her son had not intervened. Says has been angry, and upset, but also saddened by the , and the circumstances. Denies has felt pervasively depressed, does say had noticed a diminishing in previous enthusiasms, but mostly related to her and her , has maintained other enthusiasms besides that. Sleep had been a bit up and down for awhile. She says she may have been eating a bit more, does that when stressed. No psychomotor retardation. Currently denies any suicidal thoughts or intents. Acknowledges that she "wanted to be with him" soon after his , but says she has a cheondoism ivette and would rather that God decide the time instead of it being of her choosing. PAST PSYCHIATRIC HISTORY: She has seen Dr. Harrington, primary care, says was on Paxil for about 8 or 9 months, did well, and then stopped it. She says she and her had begun seeing a counselor. No history of suicidal attempts. No history of inpatient psychiatric hospitalization as far as I know. FAMILY PSYCHIATRIC HISTORY: Currently unknown. SUBSTANCE ABUSE HISTORY: None significantly per the patient. PAST MEDICAL HISTORY: Significant for hypertension, hyperlipidemia, impaired glucoses, allergic rhinitis, obesity. SOCIAL HISTORY: Apparently was raised in the [facility], says she and her were together for almost 50 years. She is trained as a nurse. Says she and her decided to move to this area about 8 years ago, bought "a dream house" and then worked on it. Says her had difficulties, particularly when his career was interrupted, in the early 80s, but he rejoined, the [employer], and that served him well, and that tended to continue until recently when he retired. She says they were concerned about finances, but felt that they would manage, and was looking forward to further trips and activities. Says has had her own difficulties with her sister, but that they became closer after their mother's . Mother was in her 90s or so, ago. Says they had their disagreements, but were able to talk about them. Says has local friends as well. Collateral information from patient's sons by and large confirm the patient's narrative, but they suggested that they were not aware of the extent of the difficulties that their parents had. They also touched on difficulties within the family, including matters related to Evon, as mentioned previously. They had not seen their father since that time, and this makes it even more painful, the events of yesterday. They noticed that their mother's demeanor is much more like her usual self today. They plan to be around her, as she leaves the hospital, and also arranging for her being in [place], [place] with her sister. Should she need to stay in the area, which she probably will need to for the next few days, at least one of the sons will be there. Third son, Osbaldo, is arriving in the next day or two. They also acknowledge that previous tensions over the last few months had impacted the family in the broad sense. Son, Yao, indicated there are no more pills in the house, no weapons, they were removed yesterday. Collateral information from her sister, Clary, indicated she is prepared to be around as well, locally, and then will take her sister to a place in [place], which is their childhood home. She is worried about what to watch out for, should her sister need assistance. MENTAL STATUS EXAM: She is in hospital clothes, she is neat, she is cooperative, though initially a bit guarded, but there are no abnormal movements noted, no agitation, no psychomotor retardation. Speech is spontaneous, coherent, quite tearful, particularly when talking about the last couple of days, but reconstitutes quite easily. No formal thought disorder. She currently denies any thoughts of harming herself and denies any homicidal ideas or intents currently. There is no evidence of any psychosis. Does not appear to be internally preoccupied. No delusions elicited. Sensorium is clear. There is no fluctuation of consciousness. She is alert, oriented to time, place and person. Concentration is good. She can spell the word house forwards and backwards, and was able to recall 2 out of 3 objects after 5 minutes with prompting. Intellect average. Judgment questionable. Insight fair. VITAL SIGNS: Blood pressure 144/82, pulse 77, temperature 97.6. It should be noted she has been treated with hypertensives, some of which have been held. Blood pressures are steadying out. ASSESSMENT: Adjustment disorder with disturbance of emotions and conduct. Rule out major depressive disorder. Marital difficulties. Broader family disagreements. 's . in very tragic circumstances, and the patient, in the immediate aftermath, tried overdosing, was quite agitated, and brought here. Currently denies any thoughts of harming herself, sensorium is clear, no evidence of any psychosis, and is future oriented, has local supports, including family. RECOMMENDATIONS: She is not entirely stable at this point to be discharged from the psychiatric standpoint. Continue pursuing further collateral information. The patient has matters to attend to regarding her 's , such as the undertaker's, etcetera, and wishes to address those, particularly starting Sunday. Has supports locally and in the [place] area, has her sons, sister as well. I would suggest reassessment tomorrow, and if feasible, will look at patient going home, and attending to the aftermath of 's . I will also suggest that she look at outpatient followup either in this area, or in the [place] area, where she plans to eventually move to. Meanwhile, as she remains a potential risk, a DCS application has been made. My assessment and recommendations are discussed with the patient and with her sons, in her presence, with her permission. Their questions were answered. The patient is aware of the implications of the DCS application. We would wish to prevent admission to the psychiatry unit, given these circumstances, and further recommendations will be made tomorrow. She does not wish to be admitted to psychiatry, and we will decide on reassessment tomorrow. The assessment took 180 minutes.
[2018-07-14 14:00] VITALS: BP 161/72
[2018-07-14] MEDS ORDERED: XANA0.25 PO (16:39)
[2018-07-14] MEDS ORDERED: TRAZ-160 PO (16:42)
--- NOTE | 2018-07-14 20:40 | DS.PDOC ---
Discharge Summary General Date of Admission Jul 12, 2018 at 15:54 Date of Discharge June Discharge Summary PSYCHIATRIST: DR. MISSY PANDYA DISCHARGE DIAGNOSES: Adjustment disorder with disturbance of emotions and conduct. Rule out major depressive disorder. Marital difficulties. Broader family disagreements. 's . INSOMNIA UNCONTROLLED HTN Suicidal Ideation in the setting of her 's . DISCHARGE MEDS: PLS SEE BELOW HISTORY OF PRESENTING ILLNESS: This is a 67-year-old female with past medical history significant for depression, hypertension, hyperlipidemia, impaired fasting glucose and allergic rhinitis, presents to the emergency room, brought in by EMS and family due to attempted suicide attempt with Paxil. Patient has been having significant family turmoil for the past few months. According to her, she has been having a strange relationship with her children and have not been able to see their grandchildren for the past four months. The patient has encouraged the to go through counseling to repair these relationships, however, he has been resistant and despite trying, patient's has been very tightlipped and not cooperative. This has led to daily arguments and oftentimes the does not say anything which further frustrates the . Also, the had been the primary caregiver for her mother who had recently passed about a month ago. She had dedicated a mass service to her mother last evening and wanted the to come with her. During the argument, the had become much more withdrawn. They had further discussed if they should separate. He would like to take the dog and she would take the cats. The patient was extremely upset when at 6:30 the was not dressed to go to the mass for her mother and encouraged him to accompany her. She felt very bad that she had to go alone and was extremely upset and told him that he was hurting her emotionally. The patient then returned to her house and found her 's keys around 6:30 and wallet without the jinriksha driver's license. The patient's could not be found anywhere. He left a note for her saying that he was sorry that it had to end this way. Patient became worried and went to the neighbor across the street. They started to look around the house, but could not find him or the dog. The neighbor asked the patient to call 911. Several patrol cars came to the residence and could not find the patient's . Into the night, she was told that they would use blood hounds and that they would go out again in search in the morning. However, the police did find her in a field across the street from their residence. He was found to have shot the dog with a pistol and also shot himself. This was then relayed to the patient who was surrounded by her family, her two sons, her sister, and her two [id number]. At that point she felt like she wanted to with him and decided to go into the room and take the narcotics that were left over from her past previous surgeries. The patient could not find the bottle and therefore found Paxil. She was followed by her son who grabbed her by the throat and scraped the pills off her tongue before she could swallow and ingest any of the Paxil pills. She was subsequently brought to the emergency room for admission for suicide attempt by intentional Paxil overdose. In the ER her vitals were stable. She was noted to have high blood pressure and hysterical crying, blaming herself and saying that it was her fault that her shot himself with a gun as well as shooting the dog. Her blood pressure was 197/88. She was subsequently given her home medications of metoprolol and Avapro with subsequent improvement in her blood pressure to 157/75. The patient remains tearful and admitted to wanting to continually try to harm herself "so I can join my ". When asked if she had a good support system, she said "my children have their own lives. They do not need me. No one needs me. I need to join my ". At this point, a phone call out to the psychiatrist environmental health sanitarian, Dr. Fany Pandya has been made. He will be seeing the patient in consult. She will be admitted to the medical floor for observation overnight with a sitter. Her sister would like to stay with her overnight as well. Patient denies any homicidal ideation, but is still making suicidal statements without a definite suicidal plan. HOSPITAL COURSE: Suicide attempt with intentional drug overdose. Patient's son was able to remove all pills. The patient did not ingest any of the Paxil medications. Clinically speaking, she is not exhibiting any lethargy, any confusion, was able to provide entire history. She had no hyperthermia, tachycardia, no diaphoresis, nausea, vomiting, diarrhea or dilated pupils. Patient was not agitated. She was not lethargic. On physical exam had no myoclonus or hyperreflexia, rigidity or trismus. At this time she is admitted to telemetry unit with a sitter. Attempted Intentional Paroxetine ingestion. Per the patient and son's interview, the patient did not ingest any Paxil medication during the suicide attempt. Clinically, she is not exhibiting any neurovascular or autonomic instability at this time. By itself paroxetine has rarely been shown to cause serotonin syndrome, but she will be monitored on the medical floor for the next 24 hours with a sitter . Severe depression and grieving secondary to 's traumatic suicide. Patient will be evaluated by psychiatrist, Dr. Fany Pandya and most likely will need inpatient mental health unit admission. At this time, she is at risk of doing harm to herself and a sitter has been provided. Family is available at this time to be supportive. The patient's sister says that she can live with her once the patient is deemed clinically and psychiatrically clear. Insomnia failed on ambien. will need to discuss with psychiatrist if pt is mentally stable to be given a few days supply of meds. Anxiety has had a paradoxical reaction to ativan causing hyperactivity. Deep venous thrombosis (DVT) prophylaxis with compression stockings. Hypertension. Uncontrolled, secondary to emotional stress. She has been resumed on her home dose of Avapro and metoprolol. Norvasc will be given for her comfort and will be provided Ativan and xanax for anxiety. disposition: PSYCH CLEARED THE PATIENT TO BE DC HOME WITH SISTER. PHYSICAL EXAMINATION: VITALS: PLS SEE BELOW GENERAL: Patient is in no respiratory distress. AAO x 3 HEENT: Pupils are round and reactive. Not dilated. There is no nasal flaring or use of respiratory accessory muscles. No jugular venous distention. NECK: Supple. LUNGS: Clear to auscultation. No wheezing, rales or rhonchi. HEART: S1, S2, sinus rhythm. No murmurs, rubs or gallops. ABDOMEN: Obese. Soft, nontender. Nondistended. Normoactive bowel sounds. No hepatosplenomegaly. No abdominal bruits. EXTREMITIES: No cyanosis, clubbing or any pitting edema. NEUROLOGICAL: Patient is awake, alert and oriented times three. Was able to provide the entire history. There is no facial asymmetry. Speech is fluent. No myoclonus or hyperreflexia. No rigidity or trismus. LABORATORY DATA, IMAGING STUDIES, MICROBIOLOGY: PLS SEE BELOW TIME SPENT ON DISCHARGE: 30 MIN Vital Signs/I&Os Vital Signs Date Time Temp Pulse Resp B/P (MAP) Pulse Ox O2 Delivery O2 Flow Rate FiO2 07/14/18 14:00 97.2 60 18 161/72 (101) 94 07/12/18 21:45 Room Air I&O- Last 24 Hours up to 6 AM 07/14/18 06:00 Intake Total 1080 ml Balance 1080 ml Microbiology Microbiology 07/12/18 Urine Culture - Final, Complete Discharge Medications Scheduled Cetirizine HCl (Allergy) 10 Mg Tablet, 10 MG PO DAILY, (Reported) Cinnamon Bark (Cinnamon) 500 Mg Capsule, 500 MG PO DAILY, (Reported) Cranberry (Cranberry) 400 Mg Capsule, 400 MG PO DAILY, (Reported) Hydralazine HCl (Hydralazine HCl) 25 Mg Tablet, 25 MG PO TID Hydrochlorothiazide (Hydrochlorothiazide) 25 Mg Tablet, 25 MG PO DAILY, (Reported) Irbesartan (Irbesartan) 300 Mg Tablet, 300 MG PO DAILY, (Reported) Metoprolol Tartrate (Metoprolol Tartrate) 25 Mg Tablet, 25 MG PO BID, (Reported) [place]-3 Acid Ethyl Esters (Lovaza) 1 Gm Capsule, 2 GM PO BID, (Reported) Paroxetine HCl (Paroxetine) 20 Mg Tablet, 20 MG PO DAILY, (Reported) FILLED IN FEB 2014; BOTTLE IN PT HOME BAG IS EMPTY Pitavastatin Calcium (Livalo) 2 Mg Tablet, 1 MG PO DAILY, (Reported) Vitamin D (Vitamin D3) 1,000 Unit Tablet, 1,000 UNITS PO DAILY, (Reported) Scheduled PRN Alprazolam (Xanax) 0.25 Mg Tablet, 0.25 MG PO QIDP PRN for ANXIETY/AGITATION Fluticasone Propionate (Flonase Allergy Relief) 9.9 Ml [place].susp, 2 SPRAY NARES DAILY PRN for ALLERGY SYMPTOMS, (Reported) Hydrocodone/Acetaminophen (Hydrocodone-Acetamin 5-325 mg) 1 Each Tablet, 1 TAB PO Q4H PRN for pain, (Reported) Lorazepam (Ativan) 0.5 Mg Tablet, 0.5 MG PO QHS PRN for anxiety, (Reported) FILLED IN 2012; BOTTLE IN PT HOME BAG IS EMPTY Trazodone HCl (Trazodone HCl) 50 Mg Tablet, 50 MG PO QHSP PRN for insomnia Allergies Coded Allergies: atorvastatin (Verified Allergy, Mild, 07/12/18) MYALGIA rosuvastatin (Verified Allergy, Mild, 07/12/18) MYALGIA simvastatin (Verified Allergy, Mild, 07/12/18) MYALGIA GAIL DENNISON MD Jul 14, 2018 20:33
--- NOTE | 2018-07-15 10:13 | MHIPN ---
DATE: 07/14/2018 CHIEF COMPLAINT: Feels better. SUBJECTIVE: She is seen for followup. She has been feeling better, says went to sleep, was given Ambien and slept soon afterwards but about an hour and a half or so later she woke up, says is not quite sure why, but suggests that it may have been because of change of shifts for the sitter. After that, started thinking about various things and was unable to sleep much. Says was then eventually given alprazolam at 0.25 mg, felt a bit settled with that, did not feel drowsy, but found that it helped. Has been eating. Has had visitors. Says has been in touch with others and that has been encouraging for her. She is more confident about facing the immediate future with matters to attend to regarding her 's , including seeing the undertaker tomorrow. Saymikayla has been feeling very sad and had been contemplating other factors, matters that may have contributed to her 's . Says had spoken with her [id number], who had seen signs in the patient's 's cognition as well. The patient feels further knowledge on that may give some solace to her. She spoke of a plan for the near future, staying in this area and that she plans to go to her house after leaving the hospital, will have her family there, her sons, sister as well, and then within the next few days, after matters such as the undertaker business and other things that need attend to are taken care of, plans to go to [place] and arrange for moving there. She will be staying with her sister at their childhood home. Denies any thoughts of harming herself. She says that she expects to feel sad, anxious as well, and that she may "breakdown" when she goes home, but plans to remain safe and is reassured by the support that she has. Collateral information, separately, from her sons and her sister, Clary, whom I saw together, indicated that they felt that the patient was ready to go and to address and attend to various aspects that are necessary in the aftermath of her 's . They plan to be around her for the next few weeks, including her son who lives in [place] and will be coming to see her later today. They suggest that the patient looks more like her usual self. MENTAL STATUS EXAMINATION: She is neat. She is cooperative. There is no agitation. No psychomotor retardation. She is coherent. Speech is spontaneous. Affect is broad, at times tearful but reconstitutes quite easily. She denies any suicidal thoughts or intents. No homicidal ideas or intents. Currently no evidence of psychosis. Cognition is grossly intact. Judgment is improved, as is insight. ASSESSMENT: 1. Adjustment disorder with disturbance of emotions and conduct. She has been feeling better overall, demeanor is broader, and she is future oriented. Family, sons and sister, are confident in providing support, including in the immediate future. Safety concerns are discussed and the importance of reaching out, should the need arise, both through local crisis hotline and contacting family, and the emergency services if necessary. I would suggest that this should apply when she is in the [facility] as well. RECOMMENDATIONS: In my opinion, she does not need to remain in the hospital, and may be discharged if that is okay with the hospitalist. She is deemed to be medically stable. Consider short prescription of Ambien 5 mg for the next few nights if needed (would not exceed ten tablets). Consider alprazolam 0.25 mg twice a day as needed for anxiety in the short term as well, for example ten tablets. I would suggest that she not use buspirone, says had been prescribed that by her primary care but had not picked it up. She may require reassessment through primary care or psychiatry should the need arise in the future. May followup locally with counselors and therapists, and in the [facility] when she goes there. She eventually plans to move there in the near future (please see discussion above). She should followup with her primary care provider, Dr. Her, in the near future. Her sister (Clary Enriquez) has been around the patient and is one of her main sources of support, she plans to be with her sister when she is here in this area and when she moves to where her sister lives in [place], [place]. Her sister canceled a trip that she had booked for next week and has canceled that in these circumstances, which is quite understandable. She requests a note indicating that she has needed to be around her sister in the aftermath of her sister's 's , I feel that is reasonable and I will defer that to the hospitalist. We spoke of safety plan. The patient understands that. I spoke about that with her sons and sister as well. They are aware of the emergency services available locally and of contacting them. We met for a total of 50 minutes. ADDENDUM: The patient will be given information on facilities, counselors, therapists, and clinic, including psychiatry, to followup with in this area. Would also suggest that she do that in the [place] area when she moves there. The patient's sister will help arrange for that. Addendum dictated: 07/14/2018 1645 Addendum transcribed: 07/15/2018 0939 francy
== END 2018-07-14 17:39 | disposition home or self-care (01) | DRG 880 ==
LOC: M ED 13:36 → M ED INP 15:54 → M MSPAV 21:52
PROVIDERS: ADMIT General Practice; ATTEND General Practice
DX: R45.89 Other symptoms and signs involving emotional state (principal); Z68.41 Body mass index [BMI] 40.0-44.9, adult; F43.25 Adjustment disorder with mixed disturbance of emotions and conduct; I10 Essential (primary) hypertension; E78.5 Hyperlipidemia, unspecified; E66.9 Obesity, unspecified; J30.9 Allergic rhinitis, unspecified; R73.01 Impaired fasting glucose; F32.9 Major depressive disorder, single episode, unspecified; Z63.0 Problems in relationship with spouse or partner; Z63.8 Other specified problems related to primary support group; Z88.8 Allergy status to other drugs, medicaments and biological substances; Z79.899 Other long term (current) drug therapy

== ENCOUNTER → 2018-08-09 | Outpatient (CLI) | payer MEDICARE, OTHER ==
[~2018-08-09] MED LIST: ATIV1TAB10 PO; CETI10CH PO; CINN500C15 PO; CRAN400C PO; FLON1SPR NARES; HYDR-3713 PO; HYDR-3910 PO; HYDR25TAB PO; IRBE300T10 PO; IRBE300T12 PO; LIVA2TAB PO; LOVA1CAP17 PO; METO25TA4 PO; PARO20TA4 PO; SB A10TA4 PO; TRAZ-160 PO; VITAD1000T PO; XANA0.25 PO
== END ==
LOC: M CLY 13:30
PROVIDERS: ATTEND Family Medicine
DX: M25.561 Pain in right knee (principal); Z53.8 Procedure and treatment not carried out for other reasons

== ENCOUNTER → 2018-08-09 | Outpatient (CLI) | payer MEDICARE, OTHER ==
[~2018-08-09] MED LIST changes: -TRAZ-160 PO; +TRAZ-252 PO
--- NOTE | 2018-08-10 07:07 | REP ---
REASON: Bilateral knee pain. Five views of the right knee show tricompartmental marginal osteophytosis and medial compartmental narrowing along with mild to moderate patellofemoral joint space narrowing. There is no acute fracture, dislocation, or subluxation. Five views of the left knee show tricompartmental marginal osteophytosis and medial compartmental narrowing with moderate patellofemoral joint space narrowing. There is no acute fracture, dislocation, or subluxation. IMPRESSION: Bilateral degenerative changes as described above.
== END ==
LOC: M CLY 13:49
PROVIDERS: ATTEND Family Medicine
DX: M17.0 Bilateral primary osteoarthritis of knee (principal); M25.561 Pain in right knee
CPT/HCPCS: 73564; G0463

== ENCOUNTER → 2018-10-31 | Outpatient (CLI) | payer MEDICARE, OTHER ==
--- NOTE | 2018-10-31 14:25 | REP ---
REASON: Hand pain, bilateral. PRIORS: None. There is bilateral asymmetric intra-digital joint space narrowing particularly affecting the DIP joints. There are no marginal erosions and there is no periarticular osteopenia. There is no acute fracture, dislocation or subluxation. IMPRESSION: Bilateral degenerative changes as described above. Electronically Signed by Eloy Babin DO 10/31/2018 05:00 P
== END ==
LOC: M WUC 11:11
PROVIDERS: ATTEND Internal Medicine Rheumatology
DX: M19.041 Primary osteoarthritis, right hand (principal); M19.042 Primary osteoarthritis, left hand; R76.8 Other specified abnormal immunological findings in serum
CPT/HCPCS: 36415; 73130; 85652; 86140; 86200; G0463

== ENCOUNTER → 2019-01-28 | Outpatient (CLI) | payer MEDICARE, OTHER ==
[~2019-01-28] MED LIST changes: +CHOL100029 PO; -VITAD1000T PO
--- NOTE | 2019-01-28 12:39 | REPMRS ---
Patient History The patient states she has not had a clinical breast exam in over a year. Family history of breast cancer at age 80 and pancreatic cancer at age 95 in mother, breast cancer at age 50 or over in maternal aunt, breast cancer at age 75 in maternal aunt. Digital Mammo Screening Bilat: January 28, 2019 - Exam #: [id number] Bilateral CC and MLO view(s) were taken. Technologist: Kaycee Lara, Technologist Prior study comparison: March 29, 2018, left breast digital mammo diagnostic unilateral performed at [facility]. September 12, 2017, digital mammo diagnostic bilateral performed at [facility]. September 04, 2016, digital woman screen mammo, performed at [facility]. FINDINGS: There are scattered fibroglandular densities. The patient status post bilateral breast reduction surgery. There are benign calcifications typical of fat necrosis bilaterally, located at approximately 12 o'clock on the right and two areas 12 o'clock and 7 to 8 o'clock in the left breast. No suspicious microcalcification is observed. There has been no change in the appearance of the mammogram from the prior studies. There is a mild amount of scattered fibroglandular density which is fairly symmetric. There is no interval development of dominant mass, architectural distortion, or grouped microcalcification suggestive of malignancy. 3-D tomosynthesis shows no additional findings. Assessment: BI-RADS/ACR category 2 mammogram. Benign Findings. Recommendation Routine screening mammogram of both breasts in 1 year (for women over age 40). This patient's Lifetime Breast Cancer Risk is estimated at 11.5 %. This mammogram was interpreted with the aid of an FDA-approved computer-aided dectection system. Electronically Signed By: Anil Ibanez MD 01/28/19 1855
== END ==
LOC: M RAD 09:58
PROVIDERS: ATTEND Family Medicine
DX: Z12.31 Encounter for screening mammogram for malignant neoplasm of breast (principal)

== ENCOUNTER → 2019-12-22 | Outpatient (REF) | payer MEDICARE, OTHER ==
[~2019-12-22] MED LIST changes: -IRBE300T10 PO; +IRBE300T7 PO
[2019-12-23 12:42] LABS: BASO # 0.1 10^3/uL (0.0-0.2); BASO % 0.7 % (0.0-1.0); EOS # 0.2 10^3/uL (0.0-0.5); EOS % 2.5 % (0.0-3.0); HEMATOCRIT 45.9 % (36.0-47.0); HEMOGLOBIN 14.5 g/dl (12.0-15.5); LYMPH # 2.2 10^3/uL (1.5-5.0); LYMPH % 29.8 % (24.0-44.0); MEAN CORPUSCULAR HEMOGLOBIN 28.3 pg (27.0-33.0); MEAN CORPUSCULAR HGB CONC 31.6 g/dl (32.0-36.5); MEAN CORPUSCULAR VOLUME 89.5 fl (80.0-96.0); MONO # 0.5 10^3/uL (0.0-0.8); MONO % 6.2 % (0.0-5.0); NEUTROPHILS # 4.4 10^3/uL (1.5-8.5); NEUTROPHILS % 60.5 % (36.0-66.0); PLATELET COUNT, AUTOMATED 208 10^3/uL (150-450); RED BLOOD COUNT 5.13 10^6/uL (4.00-5.40); WHITE BLOOD COUNT 7.3 10^3/uL (4.0-10.0)
[2019-12-23 12:51] LABS: ALBUMIN 3.8 GM/DL (3.2-5.2); ALT/SGPT 43 U/L (12-78); BILIRUBIN,TOTAL 0.5 MG/DL (0.2-1.0); BLOOD UREA NITROGEN 16 MG/DL (7-18); CALCIUM LEVEL 9.8 MG/DL (8.8-10.2); CARBON DIOXIDE LEVEL 26 MEQ/L (21-32); CHLORIDE LEVEL 107 MEQ/L (98-107); CHOLESTEROL LEVEL 214 MG/DL (<200); CHOLESTEROL RISK RATIO 5.219 (<5); GLOMERULAR FILTRATION RATE > 60.0 (>39); GLUCOSE, FASTING 91 MG/DL (70-100); HDL CHOLESTEROL 41 MG/DL (>40); LDL CHOLESTEROL 117 MG/DL (<100); NON-HDL-C 173 MG/DL; POTASSIUM SERUM 4.4 MEQ/L (3.5-5.1); SODIUM LEVEL 140 MEQ/L (136-145); THYROID STIMULATING HORMONE 0.908 uIU/ML (0.358-3.740); TRIGLYCERIDES LEVEL 280 MG/DL (<150)
[2019-12-23 12:55] LABS: FOLATE > 24.0 NG/ML (>5.4)
[2019-12-23 13:16] LABS: ERYTHROCYTE SEDIMENTATION RATE 7 mm/hr (0-30)
[2019-12-25 02:07] LABS: ANTINUCLEAR ANTIBODIES DIRECT Negative (Negative); CYCLIC CITRULLINATED PEPTIDE 41 units (0-19)
== END ==
LOC: M SFHCCLAY 11:19
PROVIDERS: ATTEND Family Medicine
DX: I10 Essential (primary) hypertension (principal); R76.8 Other specified abnormal immunological findings in serum; G62.9 Polyneuropathy, unspecified; R73.01 Impaired fasting glucose

== ENCOUNTER → 2021-02-09 | Outpatient (REF) | payer MEDICARE, OTHER ==
[~2021-02-09] MED LIST changes: +HYDR-3490 PO; -HYDR25TAB PO
[2021-02-10 11:29] LABS: BASO # 0.1 10^3/uL (0.0-0.2); BASO % 0.8 % (0.0-1.0); EOS # 0.2 10^3/uL (0.0-0.5); EOS % 3.4 % (0.0-3.0); HEMATOCRIT 44.4 % (36.0-47.0); HEMOGLOBIN 13.9 g/dl (12.0-15.5); LYMPH # 2.4 10^3/uL (1.5-5.0); LYMPH % 33.9 % (24.0-44.0); MEAN CORPUSCULAR HEMOGLOBIN 28.7 pg (27.0-33.0); MEAN CORPUSCULAR HGB CONC 31.3 g/dl (32.0-36.5); MEAN CORPUSCULAR VOLUME 91.5 fl (80.0-96.0); MONO # 0.5 10^3/uL (0.0-0.8); MONO % 7.3 % (2.0-8.0); NEUTROPHILS # 3.9 10^3/uL (1.5-8.5); NEUTROPHILS % 54.3 % (36.0-66.0); PLATELET COUNT, AUTOMATED 213 10^3/uL (150-450); RED BLOOD COUNT 4.85 10^6/uL (4.00-5.40); WHITE BLOOD COUNT 7.1 10^3/uL (4.0-10.0)
[2021-02-10 11:48] LABS: ERYTHROCYTE SEDIMENTATION RATE 6 mm/hr (0-30)
[2021-02-10 12:27] LABS: ALBUMIN 3.7 GM/DL (3.2-5.2); ALT/SGPT 82 U/L (12-78); BILIRUBIN,TOTAL 0.3 MG/DL (0.2-1.0); BLOOD UREA NITROGEN 13 MG/DL (7-18); CALCIUM LEVEL 9.6 MG/DL (8.8-10.2); CARBON DIOXIDE LEVEL 30 MEQ/L (21-32); CHLORIDE LEVEL 106 MEQ/L (98-107); CHOLESTEROL LEVEL 178 MG/DL (<200); CREATININE FOR GFR 0.67 MG/DL (0.55-1.30); GLOMERULAR FILTRATION RATE > 60.0 (>39); GLUCOSE, FASTING 110 MG/DL (70-100); HDL CHOLESTEROL 37 MG/DL (>40); LDL CHOLESTEROL 78 MG/DL (<100); NON-HDL-C 141 MG/DL; POTASSIUM SERUM 5.9 MEQ/L (3.5-5.1); RHEUMATOID FACTOR QUANT < 10.0 IU/ML (<15.0); SODIUM LEVEL 140 MEQ/L (136-145); TOTAL PROTEIN 6.8 GM/DL (6.4-8.2); TRIGLYCERIDES LEVEL 313 MG/DL (<150)
[2021-02-10 13:01] LABS: HEMOGLOBIN A1c 6.3 %
[2021-02-11 23:09] LABS: ANA (HEP2) Negative (.); CYCLIC CITRULLINATED PEPTIDE 38 units (0-19)
== END ==
LOC: M SFHCCLAY 13:59
PROVIDERS: ATTEND Family Medicine
DX: E78.5 Hyperlipidemia, unspecified (principal); R73.01 Impaired fasting glucose; I10 Essential (primary) hypertension; R76.8 Other specified abnormal immunological findings in serum

== ENCOUNTER → 2021-12-12 | Outpatient (REF) | payer MEDICARE, OTHER ==
[2021-12-12 17:25] LABS: BASO # 0.1 10^3/uL (0.0-0.2); BASO % 0.8 % (0.0-1.0); EOS # 0.2 10^3/uL (0.0-0.5); EOS % 2.4 % (0.0-3.0); HEMATOCRIT 42.9 % (36.0-47.0); HEMOGLOBIN 13.6 g/dl (12.0-15.5); LYMPH # 2.6 10^3/uL (1.5-5.0); LYMPH % 29.4 % (24.0-44.0); MEAN CORPUSCULAR HEMOGLOBIN 28.3 pg (27.0-33.0); MEAN CORPUSCULAR HGB CONC 31.7 g/dl (32.0-36.5); MEAN CORPUSCULAR VOLUME 89.2 fl (80.0-96.0); MONO # 0.6 10^3/uL (0.0-0.8); MONO % 7.2 % (2.0-8.0); NEUTROPHILS # 5.2 10^3/uL (1.5-8.5); NEUTROPHILS % 59.6 % (36.0-66.0); PLATELET COUNT, AUTOMATED 248 10^3/uL (150-450); RED BLOOD COUNT 4.81 10^6/uL (4.00-5.40); WHITE BLOOD COUNT 8.7 10^3/uL (4.0-10.0)
[2021-12-12 17:46] LABS: HEMOGLOBIN A1c 6.5 %
[2021-12-12 17:56] LABS: ERYTHROCYTE SEDIMENTATION RATE 21 mm/hr (0-30)
[2021-12-12 18:07] LABS: ALBUMIN 3.7 GM/DL (3.2-5.2); ALT/SGPT 61 U/L (12-78); BILIRUBIN,TOTAL 0.4 MG/DL (0.2-1.0); BLOOD UREA NITROGEN 17 MG/DL (7-18); C REACTIVE PROTEIN QUANTITATIV 0.34 MG/DL (0.00-0.30); CALCIUM LEVEL 9.8 MG/DL (8.8-10.2); CARBON DIOXIDE LEVEL 28 MEQ/L (21-32); CHLORIDE LEVEL 105 MEQ/L (98-107); CHOLESTEROL LEVEL 170 MG/DL (<200); CHOLESTEROL RISK RATIO 4.358 (<5); CREATININE FOR GFR 0.68 MG/DL (0.55-1.30); GLOMERULAR FILTRATION RATE > 60.0 (>39); GLUCOSE, FASTING 108 MG/DL (70-100); HDL CHOLESTEROL 39 MG/DL (>40); LDL CHOLESTEROL 90 MG/DL (<100); NON-HDL-C 131 MG/DL; POTASSIUM SERUM 4.9 MEQ/L (3.5-5.1); SODIUM LEVEL 137 MEQ/L (136-145); TOTAL PROTEIN 7.1 GM/DL (6.4-8.2); TRIGLYCERIDES LEVEL 207 MG/DL (<150)
== END ==
LOC: M SFHCCLAY 11:23
PROVIDERS: ATTEND Family Medicine
DX: E78.5 Hyperlipidemia, unspecified (principal); R73.01 Impaired fasting glucose; I10 Essential (primary) hypertension; R76.8 Other specified abnormal immunological findings in serum

== ENCOUNTER → 2022-07-19 | Outpatient (CLI) | payer MEDICARE, OTHER | LOC: M RAD 12:23 | PROVIDERS: ATTEND Family Medicine | DX: M48.061 Spinal stenosis, lumbar region without neurogenic claudication (principal); Q76.49 Other congenital malformations of spine, not associated with scoliosis; M41.86 Other forms of scoliosis, lumbar region; M47.816 Spondylosis without myelopathy or radiculopathy, lumbar region; M51.26 Other intervertebral disc displacement, lumbar region ==

== ENCOUNTER 2022-11-09 08:23 | Day surgery (SDC) | payer MEDICARE, OTHER ==
[~2022-11-09] VITALS: Ht 157.5 cm; Wt 115.8 kg
[~2022-11-09 08:23] MED LIST changes: +BAYE81TA10 PO; +CALC600T60 PO; +CYCL1DRO10 OU; +DULC5TAB PO; +FLUT50SP17; +IBUP200C25 PO; +LIDOCAINE 2% 100MG/5ML SDV (FOR ANES.) As Ordered ONE; +META28.32 PO; +METO1TAB87 PO; +NS 1,000 ML IV ONE; +OMEG1CAP85 PO; +PROBCAP14 PO; +SPIR-10 PO; +VITA200035 PO; +VITMTA PO; +propofoL 200 MG/20 ML VIAL As Ordered ONE
[2022-11-09] MEDS ORDERED: propofoL 200 MG/20 ML VIAL As Ordered ONE (10:44)
[2022-11-09 11:36] VITALS: BP 136/63; TEMP 97; O2SAT 95
== END 2022-11-09 12:55 | disposition home or self-care (01) ==
LOC: M OPP 08:23
PROVIDERS: ATTEND Internal Medicine Gastroenterology
DX: K63.5 Polyp of colon (principal); K57.30 Diverticulosis of large intestine without perforation or abscess without bleeding; K64.8 Other hemorrhoids; R19.5 Other fecal abnormalities; Z79.1 Long term (current) use of non-steroidal anti-inflammatories (NSAID); Z79.82 Long term (current) use of aspirin; Z79.899 Other long term (current) drug therapy; Z88.8 Allergy status to other drugs, medicaments and biological substances

== ENCOUNTER → 2023-01-01 | Outpatient (REF) | payer MEDICARE, OTHER ==
[~2023-01-01] MED LIST changes: -LIDOCAINE 2% 100MG/5ML SDV (FOR ANES.) As Ordered ONE; -NS 1,000 ML IV ONE; -propofoL 200 MG/20 ML VIAL As Ordered ONE
[2023-01-01 18:12] LABS: HEMATOCRIT 44.7 % (36.0-47.0); HEMOGLOBIN 14.4 g/dl (12.0-15.5); MEAN CORPUSCULAR HEMOGLOBIN 29.3 pg (27.0-33.0); MEAN CORPUSCULAR HGB CONC 32.2 g/dl (32.0-36.5); MEAN CORPUSCULAR VOLUME 90.9 fl (80.0-96.0); PLATELET COUNT, AUTOMATED 219 10^3/uL (150-450); RED BLOOD COUNT 4.92 10^6/uL (4.00-5.40); WHITE BLOOD COUNT 8.4 10^3/uL (4.0-10.0)
[2023-01-01 18:34] LABS: HEMOGLOBIN A1c 6.1 % (4.0-6.0)
[2023-01-01 18:49] LABS: ALKALINE PHOSPHATASE 100 U/L (46-116); ALT/SGPT 66 U/L (7.0-40); AST/SGOT 50 U/L (<34); BILIRUBIN,TOTAL 0.5 MG/DL (0.3-1.2); BLOOD UREA NITROGEN 15 MG/DL (9-23); CALCIUM LEVEL 10.3 MG/DL (8.3-10.6); CARBON DIOXIDE LEVEL 29 MMOL/L (20-31); CHLORIDE LEVEL 105 MMOL/L (98-107); CHOLESTEROL LEVEL 194 MG/DL (<200); CHOLESTEROL RISK RATIO 4.59 (<5); GLOMERULAR FILTRATION RATE > 60.0 (>39); GLUCOSE, FASTING 115 MG/DL (74-106); HDL CHOLESTEROL 42.2 MG/DL (>40); LDL CHOLESTEROL 84.4 MG/DL (<100); NON-HDL-C 151.8 MG/DL; POTASSIUM SERUM 5.1 MMOL/L (3.5-5.1); SODIUM LEVEL 141 MMOL/L (136-145); TOTAL PROTEIN 6.9 G/DL (5.7-8.2); TRIGLYCERIDES LEVEL 337 MG/DL (<150)
== END ==
LOC: M SFHCCLAY 12:20
PROVIDERS: ATTEND Family Medicine
DX: I10 Essential (primary) hypertension (principal); R73.01 Impaired fasting glucose; E78.5 Hyperlipidemia, unspecified

== ENCOUNTER → 2023-01-22 | Outpatient (CLI) | payer MEDICARE, OTHER | LOC: M WHC 13:52 | PROVIDERS: ATTEND Family Medicine | DX: Z12.31 Encounter for screening mammogram for malignant neoplasm of breast (principal); M81.0 Age-related osteoporosis without current pathological fracture ==

== ENCOUNTER → 2023-12-17 | Outpatient (CLI) | payer MEDICARE, OTHER ==
[~2023-12-17] MED LIST changes: -CRAN400C PO; +CRANBERRY400 MG PO; -FLUT50SP17; +FLUTISP; -HYDR-3910 PO; +HYDR25TA87 PO; +IRBE300T25 PO; -IRBE300T7 PO; +OMEG-28 PO; -OMEG1CAP85 PO
== END ==
LOC: M CLY 09:16
PROVIDERS: ATTEND Family Medicine
DX: J18.9 Pneumonia, unspecified organism (principal)

== ENCOUNTER → 2023-12-17 | Outpatient (CLI) | payer MEDICARE, OTHER | LOC: M CLY 09:03 | PROVIDERS: ATTEND Family Medicine | DX: J18.9 Pneumonia, unspecified organism (principal) ==

== ENCOUNTER → 2024-01-03 | Outpatient (CLI) | payer MEDICARE, OTHER | LOC: M CARPUL 12:29 | PROVIDERS: ATTEND Family Medicine | DX: I27.20 Pulmonary hypertension, unspecified (principal) ==

== ENCOUNTER → 2024-01-17 | Outpatient (CLI) | payer MEDICARE, OTHER | LOC: M CLY 11:50 | PROVIDERS: ATTEND Family Medicine | DX: M75.42 Impingement syndrome of left shoulder (principal) ==

== ENCOUNTER → 2024-01-17 | Outpatient (REF) | payer MEDICARE, OTHER ==
[2024-01-17 18:36] LABS: HEMATOCRIT 45.1 % (36.0-47.0); HEMOGLOBIN 14.3 g/dl (12.0-15.5); MEAN CORPUSCULAR HEMOGLOBIN 28.9 pg (27.0-33.0); MEAN CORPUSCULAR HGB CONC 31.7 g/dl (32.0-36.5); MEAN CORPUSCULAR VOLUME 91.3 fl (80.0-96.0); PLATELET COUNT, AUTOMATED 218 10^3/uL (150-450); RED BLOOD COUNT 4.94 10^6/uL (4.00-5.40); WHITE BLOOD COUNT 8.5 10^3/uL (4.0-10.0)
[2024-01-17 18:50] LABS: HEMOGLOBIN A1c 6.9 % (4.0-6.0)
[2024-01-17 19:02] LABS: ALBUMIN 3.8 G/DL (3.2-5.2); ALKALINE PHOSPHATASE 102 U/L (46-116); ALT/SGPT 49 U/L (7.0-40); AST/SGOT 30 U/L (<34); BILIRUBIN,TOTAL 0.6 MG/DL (0.3-1.2); BLOOD UREA NITROGEN 12 MG/DL (9-23); CALCIUM LEVEL 10.7 MG/DL (8.3-10.6); CARBON DIOXIDE LEVEL 30 MMOL/L (20-31); CHLORIDE LEVEL 107 MMOL/L (98-107); CHOLESTEROL LEVEL 203 MG/DL (<200); CHOLESTEROL RISK RATIO 5.54 (<5); CREATININE FOR GFR 0.63 MG/DL (0.55-1.30); GLOMERULAR FILTRATION RATE > 60.0 (>39); GLUCOSE, FASTING 152 MG/DL (74-106); HDL CHOLESTEROL 36.6 MG/DL (>40); LDL CHOLESTEROL 91.6 MG/DL (<100); NON-HDL-C 166.4 MG/DL; POTASSIUM SERUM 5.3 MMOL/L (3.5-5.1); SODIUM LEVEL 141 MMOL/L (136-145); TOTAL PROTEIN 7.2 G/DL (5.7-8.2); TRIGLYCERIDES LEVEL 374 MG/DL (<150)
== END ==
LOC: M SFHCCLAY 11:12
PROVIDERS: ATTEND Family Medicine
DX: I10 Essential (primary) hypertension (principal); R73.01 Impaired fasting glucose; E78.5 Hyperlipidemia, unspecified

== ENCOUNTER → 2024-02-11 | Outpatient (CLI) | payer MEDICARE, OTHER | LOC: M PLAIMG 13:45 | PROVIDERS: ATTEND Family Medicine | DX: M75.42 Impingement syndrome of left shoulder (principal) ==

== ENCOUNTER → 2024-06-10 | Outpatient (CLI) | payer MEDICARE, OTHER | LOC: M CLY 13:45 | PROVIDERS: ATTEND Internal Medicine Pulmonary Disease | DX: R05.9 Cough, unspecified (principal) ==

== ENCOUNTER → 2024-07-22 | Outpatient (REF) | payer MEDICARE, OTHER ==
[2024-07-22 19:09] LABS: HEMOGLOBIN A1c 7.5 % (4.0-6.0)
[2024-07-22 19:20] LABS: ALBUMIN 3.9 G/DL (3.2-5.2); ALKALINE PHOSPHATASE 98 U/L (35-104); ALT/SGPT 52 U/L (7.0-40); AST/SGOT 34 U/L (<34); BILIRUBIN,TOTAL 0.5 MG/DL (0.3-1.2); BLOOD UREA NITROGEN 14 MG/DL (9-23); CARBON DIOXIDE LEVEL 27 MMOL/L (20-31); CHLORIDE LEVEL 104 MMOL/L (98-107); CREATININE FOR GFR 0.58 MG/DL (0.55-1.30); GLOMERULAR FILTRATION RATE > 90.0 (>39); GLUCOSE, FASTING 115 MG/DL (74-106); POTASSIUM SERUM 4.4 MMOL/L (3.5-5.1); SODIUM LEVEL 140 MMOL/L (136-145); TOTAL PROTEIN 7.1 G/DL (5.7-8.2)
== END ==
LOC: M SFHCCLAY 14:33
PROVIDERS: ATTEND Family Medicine
DX: I10 Essential (primary) hypertension (principal)

== ENCOUNTER → 2024-07-28 | Outpatient (CLI) | payer MEDICARE, OTHER | LOC: M SLEEP 20:00 | PROVIDERS: ATTEND Internal Medicine Pulmonary Disease | DX: G47.33 Obstructive sleep apnea (adult) (pediatric) (principal); R06.83 Snoring ==

== ENCOUNTER → 2024-07-31 | Outpatient (CLI) | payer MEDICARE, OTHER | LOC: M PLAIMG 11:50 | PROVIDERS: ATTEND Internal Medicine Pulmonary Disease | DX: R91.8 Other nonspecific abnormal finding of lung field (principal) ==

== ENCOUNTER → 2024-09-22 | Outpatient (CLI) | payer MEDICARE, OTHER | LOC: M SLEEP 20:00 | PROVIDERS: ATTEND Internal Medicine Pulmonary Disease | DX: G47.33 Obstructive sleep apnea (adult) (pediatric) (principal) ==

== ENCOUNTER 2024-11-19 14:02 | Observation (INO) | payer MEDICARE, OTHER ==
[~2024-11-19] VITALS: Ht 165.1 cm; Wt 101.5 kg
[2024-11-19] MEDS: predniSONE 20 MG TAB PO ONE (16:38)
[2024-11-19] MEDS: KETOROLAC 30 MG/ML 1 ML VIAL IM ONE (16:40)
[2024-11-19] MEDS ORDERED: ACET-897 PO (20:29)
[2024-11-19] MEDS ORDERED: THERTAB65 PO (20:32)
[2024-11-19] MEDS ORDERED: DULO1CAP5 PO (20:32)
[2024-11-19] MEDS ORDERED: CELE0.09 PO (20:32)
[2024-11-19] MEDS ORDERED: HOME MED LIST COMPLETE! XX SCH (20:35)
[2024-11-19] MEDS ORDERED: FLUTICASONE PROPIONATE 0.05% NASAL SPRAY 16 GM PRN (22:15)
[2024-11-19] MEDS ORDERED: MAALOX 30 ML SUSP *UDC PO PRN (22:15)
[2024-11-19] MEDS ORDERED: CALCIUM CARBONATE 500 MG CHEW U/D PO PRN (22:15)
[2024-11-19] MEDS ORDERED: MOM 30 ML SUSPENSION UDC PO PRN (22:15)
[2024-11-19] MEDS ORDERED: KETOROLAC 30 MG/ML 1 ML VIAL IV PRN ×2 (22:15)
[2024-11-19 22:47] LABS: BASO # 0.0 10^3/uL (0.0-0.2); BASO % 0.2 % (0.0-1.0); EOS # 0.0 10^3/uL (0.0-0.5); EOS % 0.0 % (0.0-3.0); LYMPH # 0.6 10^3/uL (1.5-5.0); LYMPH % 5.1 % (24.0-44.0); MONO # 0.2 10^3/uL (0.0-0.8); MONO % 1.7 % (2.0-8.0); NEUTROPHILS # 11.1 10^3/uL (1.5-8.5); NEUTROPHILS % 92.7 % (36.0-66.0); PLATELET COUNT, AUTOMATED 285 10^3/uL (150-450)
[2024-11-19] MEDS: LIDOCAINE 5% PATCH TD SCH (22:49)
[2024-11-19] MEDS ORDERED: NALOXONE INJ 0.4 MG/1 ML VIAL IV PRN (22:50)
[2024-11-19 22:53] LABS: ERYTHROCYTE SEDIMENTATION RATE 83 mm/hr (0-30)
[2024-11-19 23:00] LABS: INR 1.11
[2024-11-19 23:09] LABS: ALT/SGPT 21 U/L (7.0-40); AST/SGOT 29 U/L (<34); CALCIUM LEVEL 10.9 MG/DL (8.3-10.6); CARBON DIOXIDE LEVEL 24 MMOL/L (20-31); CHLORIDE LEVEL 104 MMOL/L (98-107); CREATININE FOR GFR 0.69 MG/DL (0.55-1.30); GLOMERULAR FILTRATION RATE > 90.0 (>39); MAGNESIUM LEVEL 2.2 MG/DL (1.8-2.4); POTASSIUM SERUM 5.0 MMOL/L (3.5-5.1); SODIUM LEVEL 141 MMOL/L (136-145)
[2024-11-19 23:16] LABS: C REACTIVE PROTEIN QUANTITATIV 15.75 MG/DL (<1.0)
[2024-11-19 23:55] LABS: ESTIMATED AVERAGE GLUCOSE 148.0 MG/DL (60-110)
[2024-11-20] VITALS (9 sets, daily range): BP systolic 98–137; BP diastolic 46–61; TEMP 97.4–99.6; O2SAT 93–96
[2024-11-20 04:30] LABS: PLATELET COUNT, AUTOMATED 236 10^3/uL (150-450)
[2024-11-20] MEDS: ACETAMINOPHEN 500 MG TAB PO PRN (04:30)
[2024-11-20 04:53] LABS: ALT/SGPT 19 U/L (7.0-40); AST/SGOT 18 U/L (<34); CALCIUM LEVEL 10.3 MG/DL (8.3-10.6); CARBON DIOXIDE LEVEL 26 MMOL/L (20-31); CHLORIDE LEVEL 105 MMOL/L (98-107); CREATININE FOR GFR 0.60 MG/DL (0.55-1.30); GLOMERULAR FILTRATION RATE > 90.0 (>39); MAGNESIUM LEVEL 2.2 MG/DL (1.8-2.4); POTASSIUM SERUM 4.5 MMOL/L (3.5-5.1); SODIUM LEVEL 141 MMOL/L (136-145)
[2024-11-20] MEDS: IRBESARTAN 150 MG TAB PO SCH (09:00)
[2024-11-20 09:31] LABS: KETONE, URINE AUTO RFX TRACE mg/dL (NEGATIVE); MUCUS, URINE RFX SMALL (NEGATIVE); NITRITE, URINE AUTO RFX NEGATIVE (NEGATIVE); RBC, URINE AUTO RFX 2 /HPF (0-3); SQUAM EPITHELIAL CELL UR AURFX 2 /HPF (0-6)
[2024-11-20 09:47] LABS: LEUKOCYTE ESTERASE UR AUTO RFX TRACE (NEGATIVE); WBC, URINE AUTO RFX 18 /HPF (0-3)
[2024-11-20] MEDS: ENOXAPARIN 40 MG/0.4 ML SYRINGE (J1650 PER 10MG) SC SCH (10:11)
[2024-11-20] MEDS: KETOROLAC 30 MG/ML 1 ML VIAL IV SCH (10:12)
[2024-11-20] MEDS: MIRALAX *UNIT DOSE* 17 GM PACKET PO SCH (10:12)
[2024-11-20] MEDS: ACETAMINOPHEN 500 MG TAB PO SCH (10:12)
[2024-11-20] MEDS: PANTOPRAZOLE 40MG TAB PO SCH (10:13)
[2024-11-20] MEDS: DOCUSATE SODIUM 100 MG CAPSULE PO SCH (10:13)
[2024-11-20] MEDS: METOPROLOL TART 25 MG TABLET PO SCH (10:14)
[2024-11-20] MEDS: SPIRONOLACTONE 25 MG TAB PO SCH (10:14)
[2024-11-20] MEDS ORDERED: PROHANCE 279.3MG/ML 5ML VIAL As Ordered ONE (19:10)
[2024-11-20] MEDS ORDERED: PROHANCE 279.3MG/ML 15ML VIAL As Ordered ONE (19:10)
[2024-11-20] MEDS: MORPHINE 4 MG/ML 1 ML VIAL IV STA (20:02)
[2024-11-21 04:00] VITALS: BP 104/51; TEMP 97; O2SAT 93
[2024-11-21 07:53] VITALS: BP 105/52; TEMP 96.7; O2SAT 98
[2024-11-21] MEDS ORDERED: DOCUSATE SODIUM 100 MG CAPSULE PO PRN (11:35)
[2024-11-21 12:40] VITALS: BP 117/55; TEMP 97.1; O2SAT 95
[2024-11-21] MEDS: KETOROLAC TROMETHAMINE 10 MG TAB PO SCH (15:50)
[2024-11-21] MEDS: ACETAMINOPHEN 325 MG TAB PO PRN (15:51)
[2024-11-21] MEDS: ULTRACET TAB PO SCH (15:51)
[2024-11-21] MEDS ORDERED: METH-1165 PO (15:52)
[2024-11-21] MEDS ORDERED: LIDO5TD TD (15:52)
[2024-11-21] MEDS ORDERED: TRAM50TA2 PO (15:52)
[2024-11-21] MEDS ORDERED: IRBE75TA11 PO (15:52)
== END 2024-11-21 16:50 | disposition home or self-care (01) ==
LOC: EDBD 14:02 → M ED 14:02 → M ED INP 14:03 → M ED 23:46 → M MS4PR 11-20 00:05
PROVIDERS: ADMIT Student in an Organized Health Care Education/Training Program; ATTEND Internal Medicine Nephrology
DX: M48.061 Spinal stenosis, lumbar region without neurogenic claudication (principal); M54.16 Radiculopathy, lumbar region; M41.80 Other forms of scoliosis, site unspecified; M25.551 Pain in right hip; M53.3 Sacrococcygeal disorders, not elsewhere classified; R26.2 Difficulty in walking, not elsewhere classified; E66.9 Obesity, unspecified; I11.0 Hypertensive heart disease with heart failure; R73.01 Impaired fasting glucose; G47.33 Obstructive sleep apnea (adult) (pediatric); I50.31 Acute diastolic (congestive) heart failure; E78.5 Hyperlipidemia, unspecified; J30.9 Allergic rhinitis, unspecified; K59.00 Constipation, unspecified; Z88.8 Allergy status to other drugs, medicaments and biological substances; Z79.899 Other long term (current) drug therapy
CPT/HCPCS: 36415; 72131; 72158; 80048; 80053; 80076; 81001; 83036; 83735; 85025; 85027; 85610; 85652; 85730; 86140; 87040; 87086; 94660; 96372; 96374; 96375; 96376; 97116; 97161; 97165; 97530; 97535; 99284; A9576; G0378; J1650; J1885; J7512

== ENCOUNTER 2024-11-28 15:54 | Inpatient (IN) | payer MEDICARE, OTHER ==
[~2024-11-28] VITALS: Ht 157.5 cm; Wt 97.7 kg
[~2024-11-28 15:54] MED LIST changes: -ACET32TAB PO; -ELIQ2.5T PO; -LIDO1ADH93 TOP
[2024-11-28 16:34] LABS: BASO # 0.1 10^3/uL (0.0-0.2); BASO % 0.6 % (0.0-1.0); EOS # 0.1 10^3/uL (0.0-0.5); EOS % 1.3 % (0.0-3.0); LYMPH # 1.6 10^3/uL (1.5-5.0); LYMPH % 18.2 % (24.0-44.0); MONO # 0.7 10^3/uL (0.0-0.8); MONO % 8.2 % (2.0-8.0); NEUTROPHILS # 6.2 10^3/uL (1.5-8.5); NEUTROPHILS % 71.2 % (36.0-66.0); PLATELET COUNT, AUTOMATED 324 10^3/uL (150-450)
[2024-11-28 17:00] LABS: CALCIUM LEVEL 11.1 MG/DL (8.3-10.6); CARBON DIOXIDE LEVEL 30 MMOL/L (20-31); CHLORIDE LEVEL 102 MMOL/L (98-107); CREATININE FOR GFR 0.63 MG/DL (0.55-1.30); GLOMERULAR FILTRATION RATE > 90.0 (>39); POTASSIUM SERUM 4.9 MMOL/L (3.5-5.1); SODIUM LEVEL 142 MMOL/L (136-145)
[2024-11-28] MEDS ORDERED: LIDO1ADH93 TOP (18:47)
[2024-11-28] MEDS ORDERED: METH-1165 PO (18:49)
[2024-11-28] MEDS ORDERED: TRAM50TA2 PO (18:54)
[2024-11-28] MEDS ORDERED: HOME MED LIST COMPLETE! XX SCH (19:00)
[2024-11-28] MEDS: ACETAMINOPHEN *IV* 1,000 MG in IV 1 EA IV ONE (19:10)
[2024-11-28] MEDS ORDERED: MORPHINE 2 MG/ML 1 ML VIAL IV PRN (19:55)
[2024-11-28] MEDS ORDERED: MORPHINE 4 MG/ML 1 ML VIAL IV PRN (19:55)
[2024-11-28] MEDS ORDERED: FLUTICASONE PROPIONATE 0.05% NASAL SPRAY 16 GM PRN (20:00)
[2024-11-28] MEDS: METOPROLOL TART 25 MG TABLET PO SCH (22:11)
[2024-11-28 22:17] VITALS: BP 128/48; TEMP 97.5; O2SAT 98
[2024-11-28] MEDS: HEPARIN SOD 5000 UNITS/ML 1 ML VIAL/SYRINGE SC ONE (22:33)
[2024-11-28] MEDS: ACETAMINOPHEN 325 MG TAB PO PRN (22:33)
[2024-11-29] VITALS (10 sets, daily range): BP systolic 124–139; BP diastolic 56–79; TEMP 97.5–98.8; O2SAT 93–98
[2024-11-29 06:51] LABS: PLATELET COUNT, AUTOMATED 257 10^3/uL (150-450)
[2024-11-29 07:03] LABS: INR 1.03
[2024-11-29 07:18] LABS: CALCIUM LEVEL 10.3 MG/DL (8.3-10.6); CARBON DIOXIDE LEVEL 29 MMOL/L (20-31); CHLORIDE LEVEL 103 MMOL/L (98-107); CREATININE FOR GFR 0.61 MG/DL (0.55-1.30); GLOMERULAR FILTRATION RATE > 90.0 (>39); MAGNESIUM LEVEL 1.9 MG/DL (1.8-2.4); POTASSIUM SERUM 4.2 MMOL/L (3.5-5.1); SODIUM LEVEL 143 MMOL/L (136-145)
[2024-11-29 07:20] LABS: TOTAL 25(OH) VITAMIN D 64.7 NG/ML (20.0-100.0)
[2024-11-29 07:22] LABS: PTH INTACT 13.6 PG/ML (18.5-88.0)
[2024-11-29] MEDS: PANTOPRAZOLE 40MG VIAL IV SCH (09:00)
[2024-11-29] MEDS: SPIRONOLACTONE 25 MG TAB PO SCH (09:00)
[2024-11-29] MEDS: IRBESARTAN 150 MG TAB PO SCH (09:00)
[2024-11-29] MEDS: MIDAZOLAM INJ 2 MG/2 ML VIAL IV PRN (10:45)
[2024-11-29] MEDS ORDERED: LIDOCAINE 2% 100 MG/5 ML SDV (FOR ANES.) As Ordered ONE (10:51)
[2024-11-29] MEDS ORDERED: ONDANSETRON 4MG 2ML VIAL As Ordered ONE (10:56)
[2024-11-29] MEDS ORDERED: dexAMETHasone 4 MG/ML 1 ML VIAL As Ordered ONE (10:56)
[2024-11-29] MEDS: ROPIvacaine 0.5% 30ML VIAL PN ONE (11:02)
[2024-11-29] MEDS: LIDOCAINE 1% SDV 5 ML VIAL PN ONE (11:02)
[2024-11-29] MEDS ORDERED: ROCURONIUM BROMIDE 50MG/5ML VIAL As Ordered ONE (11:10)
[2024-11-29] MEDS: TRANEXAMIC ACID 100 MG/ML 10ML VIAL As Ordered ONE (11:30)
[2024-11-29] MEDS ORDERED: ROPIvacaine 0.5% 30ML VIAL PN ONE (11:50)
[2024-11-29] MEDS ORDERED: dexmedeTOMIDine (4 MCG/ML) 200 MCG/50 ML BTL As Ordered ONE (11:53)
[2024-11-29] MEDS ORDERED: ROPIvacaine 0.5% 30ML VIAL As Ordered ONE (13:10)
[2024-11-29] MEDS ORDERED: PHENYLephrine 500MCG 5ML (100MCG/ML) SYRINGE As Ordered ONE (13:15)
[2024-11-29] MEDS ORDERED: SUGAMMADEX SODIUM 500 MG/5 ML VIAL As Ordered ONE (13:29)
[2024-11-29] MEDS ORDERED: HYDROMORPHONE HCL 0.5 MG/0.5 ML SYRINGE IV PRN (13:50)
[2024-11-29] MEDS: HYDROMORPHONE HCL 0.5 MG/0.5 ML SYRINGE IV PRN (14:26)
[2024-11-29] MEDS: ceFAZolin SODIUM 2 GM in DEXTROSE 5% (D5W) ADV/MINI-BAG 50 ML IV SCH (19:57)
[2024-11-30 04:16] VITALS: BP 131/63; TEMP 97.9; O2SAT 93
[2024-11-30 07:10] LABS: PLATELET COUNT, AUTOMATED 303 10^3/uL (150-450)
[2024-11-30 07:48] LABS: CALCIUM LEVEL 9.8 MG/DL (8.3-10.6); CARBON DIOXIDE LEVEL 29 MMOL/L (20-31); CHLORIDE LEVEL 100 MMOL/L (98-107); CREATININE FOR GFR 0.70 MG/DL (0.55-1.30); GLOMERULAR FILTRATION RATE > 90.0 (>39); MAGNESIUM LEVEL 1.9 MG/DL (1.8-2.4); PHOSPHORUS LEVEL 2.9 MG/DL (2.4-5.1); POTASSIUM SERUM 4.6 MMOL/L (3.5-5.1); SODIUM LEVEL 139 MMOL/L (136-145)
[2024-11-30 10:20] VITALS: BP 86/50; TEMP 97.5; O2SAT 94
[2024-11-30] MEDS: LACTATED RINGER'S 500 ML IV ONE (10:33)
[2024-11-30 11:00] VITALS: BP 110/60
[2024-11-30 14:01] VITALS: BP 92/42; TEMP 97.9; O2SAT 94
[2024-11-30 19:47] VITALS: BP 97/53; TEMP 97; O2SAT 94
[2024-12-01 03:57] VITALS: BP 122/48; TEMP 97.5
[2024-12-01 04:00] VITALS: O2SAT 95
[2024-12-01 07:35] LABS: PLATELET COUNT, AUTOMATED 253 10^3/uL (150-450)
[2024-12-01 07:54] LABS: CALCIUM LEVEL 9.5 MG/DL (8.3-10.6); CARBON DIOXIDE LEVEL 28 MMOL/L (20-31); CHLORIDE LEVEL 102 MMOL/L (98-107); CREATININE FOR GFR 0.56 MG/DL (0.55-1.30); GLOMERULAR FILTRATION RATE > 90.0 (>39); MAGNESIUM LEVEL 1.9 MG/DL (1.8-2.4); PHOSPHORUS LEVEL 2.6 MG/DL (2.4-5.1); POTASSIUM SERUM 4.1 MMOL/L (3.5-5.1); SODIUM LEVEL 139 MMOL/L (136-145)
[2024-12-01 09:00] VITALS: BP 120/64
[2024-12-01 10:49] LABS: ESTIMATED AVERAGE GLUCOSE 154.0 MG/DL (60-110)
[2024-12-01] MEDS ORDERED: ACET32TAB PO (12:16)
[2024-12-01] MEDS ORDERED: ELIQ2.5T PO (13:37)
[2024-12-01 14:00] VITALS: BP 120/67; TEMP 98.1; O2SAT 96
[2024-12-01] MEDS ORDERED: APIXABAN 2.5 MG TAB PO SCH (21:00)
[2024-12-02] MEDS ORDERED: OMEGCAP4 PO (11:27)
[2024-12-02] MEDS ORDERED: METH-1165 PO (11:32)
[2024-12-02] MEDS ORDERED: VITA200012 PO (11:32)
[2024-12-02] MEDS ORDERED: CALC600T86 PO (11:32)
[2024-12-02] MEDS ORDERED: ELIQ2.5T PO (11:35)
== END 2024-12-01 11:52 | DRG 522 ==
LOC: EDBD 15:54 → M ED 15:54 → M ED INP 19:52 → M MS5PR 21:35
PROVIDERS: ADMIT Student in an Organized Health Care Education/Training Program; ATTEND Family Medicine
PROC: 0SRR0J9 Replacement of Right Hip Joint, Femoral Surface with Synthetic Substitute, Cemented, Open Approach (ICD-10-PCS; principal; 2024-11-29 11:00)
DX: S72.011A Unspecified intracapsular fracture of right femur, initial encounter for closed fracture (principal); I50.32 Chronic diastolic (congestive) heart failure; I11.0 Hypertensive heart disease with heart failure; G47.33 Obstructive sleep apnea (adult) (pediatric); E78.5 Hyperlipidemia, unspecified; M48.00 Spinal stenosis, site unspecified; E83.52 Hypercalcemia; I27.20 Pulmonary hypertension, unspecified; I95.9 Hypotension, unspecified; E66.9 Obesity, unspecified; E11.9 Type 2 diabetes mellitus without complications; Z88.8 Allergy status to other drugs, medicaments and biological substances; Z68.39 Body mass index [BMI] 39.0-39.9, adult; Z79.899 Other long term (current) drug therapy; X58.XXXA Exposure to other specified factors, initial encounter; Y92.9 Unspecified place or not applicable; Y93.9 Activity, unspecified; Y99.9 Unspecified external cause status

== ENCOUNTER → 2024-11-28 | Outpatient (CLI) | payer MEDICARE, OTHER ==
[~2024-11-28] MED LIST changes: +ACET-897 PO; +ACET32TAB PO; +CALC600T86 PO; +CELE0.09 PO; +DULO1CAP5 PO; +ELIQ2.5T PO; +IRBE75TA11 PO; +LIDO1ADH93 TOP; +LIDO5TD TD; +METH-1165 PO; +OMEGCAP4 PO; +THERTAB65 PO; +TRAM50TA2 PO; +VITA200012 PO
== END ==
LOC: M CLY 13:40
PROVIDERS: ATTEND Family Medicine
DX: S72.061A Displaced articular fracture of head of right femur, initial encounter for closed fracture (principal); X58.XXXA Exposure to other specified factors, initial encounter; Y92.9 Unspecified place or not applicable; Y93.9 Activity, unspecified; Y99.9 Unspecified external cause status

== ENCOUNTER → 2024-11-28 | Outpatient (CLI) | payer MEDICARE, OTHER ==
[~2024-11-28] MED LIST changes: -CALC600T86 PO; -OMEGCAP4 PO; -VITA200012 PO
== END ==
LOC: M CLY 13:30
PROVIDERS: ATTEND Family Medicine
DX: M79.604 Pain in right leg (principal); Z53.9 Procedure and treatment not carried out, unspecified reason

== ENCOUNTER 2024-12-01 13:40 | Inpatient (IN) | payer MEDICARE, OTHER ==
[~2024-12-01] VITALS: Ht 157.5 cm; Wt 98.9 kg
[~2024-12-01 13:40] MED LIST changes: +ACET32TAB PO; +ELIQ2.5T PO; +LIDO1ADH93 TOP
[2024-12-01] MEDS ORDERED: BISACODYL 10 MG SUPP PR PRN (14:45)
[2024-12-01] MEDS ORDERED: GLUCOSE 4 GM CHEW PO PRN (14:45)
[2024-12-01] MEDS ORDERED: ONDANSETRON 4MG TAB PO PRN (14:45)
[2024-12-01] MEDS ORDERED: MAALOX 30 ML SUSP *UDC PO PRN (14:45)
[2024-12-01] MEDS ORDERED: MIRALAX *UNIT DOSE* 17 GM PACKET PO PRN (14:45)
[2024-12-01] MEDS ORDERED: GLUCAGON INJ 1 MG VIAL SC PRN (14:45)
[2024-12-01] MEDS ORDERED: DEXTROSE 50% 50 ML SYRINGE IV PRN (14:45)
[2024-12-01 15:25] VITALS: BP 122/57; TEMP 98.3; O2SAT 94
[2024-12-01] MEDS: INSULIN LISPRO (NovoLOG) PER UNIT SC SCH ×2 (17:19→19:58)
[2024-12-01] MEDS ORDERED: MOM 30 ML SUSPENSION UDC PO PRN (17:40)
[2024-12-01 20:00] VITALS: BP 137/63; TEMP 98; O2SAT 95
[2024-12-01] MEDS: DOCUSATE SODIUM 100 MG CAPSULE PO SCH (20:45)
[2024-12-01] MEDS: APIXABAN 2.5 MG TAB PO SCH (20:46)
[2024-12-01] MEDS: METOPROLOL TART 25 MG TABLET PO SCH (20:46)
[2024-12-01] MEDS: SENNA 8.6 MG TAB PO SCH (20:46)
[2024-12-01] MEDS: ACETAMINOPHEN 500 MG TAB PO SCH (20:47)
[2024-12-01] MEDS ORDERED: ACETAMINOPHEN 325 MG TAB PO SCH (21:00)
[2024-12-01] MEDS: RAMELTEON 8 MG TAB PO PRN (23:15)
[2024-12-02 04:00] VITALS: BP 109/55; TEMP 98.1; O2SAT 94
[2024-12-02 07:46] LABS: PLATELET COUNT, AUTOMATED 310 10^3/uL (150-450)
[2024-12-02 08:04] LABS: ALT/SGPT 20 U/L (7.0-40); AST/SGOT 33 U/L (<34); CALCIUM LEVEL 9.6 MG/DL (8.3-10.6); CARBON DIOXIDE LEVEL 28 MMOL/L (20-31); CHLORIDE LEVEL 99 MMOL/L (98-107); CREATININE FOR GFR 0.54 MG/DL (0.55-1.30); GLOMERULAR FILTRATION RATE > 90.0 (>39); POTASSIUM SERUM 4.4 MMOL/L (3.5-5.1); SODIUM LEVEL 137 MMOL/L (136-145)
[2024-12-02] MEDS ORDERED: OMEGCAP4 PO (11:27)
[2024-12-02] MEDS ORDERED: METH-1165 PO (11:32)
[2024-12-02] MEDS ORDERED: VITA200012 PO (11:32)
[2024-12-02] MEDS ORDERED: CALC600T86 PO (11:32)
[2024-12-02] MEDS ORDERED: ELIQ2.5T PO (11:35)
[2024-12-02 12:00] VITALS: BP 130/61; TEMP 97.2; O2SAT 96
[2024-12-02 20:00] VITALS: BP 111/58; TEMP 98.6; O2SAT 96
[2024-12-02] MEDS: OMEGA-3 1000 MG CAPSULE PO SCH (21:07)
[2024-12-03] MEDS: ACETAMINOPHEN 325 MG TAB PO PRN (01:25)
[2024-12-03 04:00] VITALS: BP 112/68; TEMP 97.6; O2SAT 97
[2024-12-03] MEDS: NYSTATIN 100,000 UNITS/GM TOPICAL PWD 15 GM TOP SCH (09:00)
[2024-12-03 12:00] VITALS: BP 114/58; TEMP 98.5; O2SAT 96
[2024-12-03] MEDS: FIBER-CON 625 MG TAB PO SCH (14:03)
[2024-12-03 19:40] VITALS: BP 124/60; TEMP 98.5; O2SAT 97
[2024-12-04 03:22] VITALS: BP 119/56; TEMP 96.2; O2SAT 96
[2024-12-04 07:09] LABS: PLATELET COUNT, AUTOMATED 317 10^3/uL (150-450)
[2024-12-04 07:11] VITALS: BP 139/60
[2024-12-04 07:35] LABS: CALCIUM LEVEL 9.3 MG/DL (8.3-10.6); CARBON DIOXIDE LEVEL 28 MMOL/L (20-31); CHLORIDE LEVEL 101 MMOL/L (98-107); CREATININE FOR GFR 0.52 MG/DL (0.55-1.30); GLOMERULAR FILTRATION RATE > 90.0 (>39); POTASSIUM SERUM 4.4 MMOL/L (3.5-5.1); SODIUM LEVEL 137 MMOL/L (136-145)
[2024-12-04 12:00] VITALS: BP 142/65; TEMP 97.3; O2SAT 95
[2024-12-04 20:06] VITALS: BP 147/68; TEMP 98.6; O2SAT 96
[2024-12-05 04:00] VITALS: BP 139/63; TEMP 98; O2SAT 96
[2024-12-05] MEDS: FLUZONE HIGH DOSE TRI (25-26) 0.5 ML SYRINGE IM.IMMUN ONE (07:18)
[2024-12-05 12:00] VITALS: BP 145/64; TEMP 97.1; O2SAT 99
[2024-12-05 20:00] VITALS: BP 164/71; TEMP 97.7; O2SAT 95
[2024-12-06 04:00] VITALS: BP 146/66; TEMP 97.6; O2SAT 97
[2024-12-06 11:41] VITALS: BP 151/65; TEMP 96.9; O2SAT 96
[2024-12-06 20:01] VITALS: BP 122/59; TEMP 97.9; O2SAT 94
[2024-12-07 04:00] VITALS: BP 126/58; TEMP 96.8; O2SAT 96
[2024-12-07 12:35] VITALS: BP 133/65; TEMP 98.2; O2SAT 98
[2024-12-07 20:00] VITALS: BP 121/58; TEMP 97.9; O2SAT 94
[2024-12-08 04:00] VITALS: BP 145/65; TEMP 97.4; O2SAT 97
[2024-12-08 12:00] VITALS: BP 118/57; TEMP 97.8; O2SAT 100
[2024-12-08] MEDS: HYDROCORTISONE 1% CREAM 30 GM TOP ONE (15:17)
[2024-12-08] MEDS ORDERED: HYDR1CR TOP (16:53)
[2024-12-08] MEDS ORDERED: ELIQ2.5T PO (16:53)
[2024-12-08] MEDS ORDERED: METH-1164 PO (16:53)
[2024-12-08 18:01] LABS: PLATELET COUNT, AUTOMATED 359 10^3/uL (150-450)
[2024-12-08 19:37] VITALS: BP 136/64; TEMP 98; O2SAT 96
[2024-12-08] MEDS: HYDROCORTISONE 1% CREAM 30 GM TOP SCH (20:55)
[2024-12-09 03:30] VITALS: BP 143/62; TEMP 97.4; O2SAT 96
[2024-12-09 08:37] VITALS: BP 143/62
== END 2024-12-09 11:05 | disposition home health service (06) | DRG 560 ==
LOC: M PM&R 15:25
PROVIDERS: ADMIT Physical Medicine & Rehabilitation; ATTEND Physical Medicine & Rehabilitation
DX: S72.011D Unspecified intracapsular fracture of right femur, subsequent encounter for closed fracture with routine healing (principal); I50.32 Chronic diastolic (congestive) heart failure; G47.33 Obstructive sleep apnea (adult) (pediatric); E11.9 Type 2 diabetes mellitus without complications; E78.5 Hyperlipidemia, unspecified; F32.A Depression, unspecified; K59.00 Constipation, unspecified; E66.812 Obesity, class 2; I11.0 Hypertensive heart disease with heart failure; D64.9 Anemia, unspecified; M48.00 Spinal stenosis, site unspecified; L24.A0 Irritant contact dermatitis due to friction or contact with body fluids, unspecified; L23.1 Allergic contact dermatitis due to adhesives; Z74.1 Need for assistance with personal care; Z74.09 Other reduced mobility; Z96.641 Presence of right artificial hip joint; Z68.39 Body mass index [BMI] 39.0-39.9, adult; Z79.01 Long term (current) use of anticoagulants; Z79.899 Other long term (current) drug therapy; Z88.8 Allergy status to other drugs, medicaments and biological substances

== ENCOUNTER → 2024-12-12 | Outpatient (CLI) | payer MEDICARE, OTHER ==
[~2024-12-12] MED LIST changes: +CALC600T86 PO; +HYDR1CR TOP; +METH-1164 PO; +OMEGCAP4 PO; +VITA200012 PO
== END ==
LOC: M SOG 07:35
PROVIDERS: ATTEND Physician Assistant
DX: M25.551 Pain in right hip (principal)

== ENCOUNTER → 2025-01-16 | Outpatient (CLI) | payer MEDICARE, OTHER | LOC: M SOG 07:23 | PROVIDERS: ATTEND Physician Assistant | DX: M25.551 Pain in right hip (principal); Z96.641 Presence of right artificial hip joint; M19.09 Primary osteoarthritis, other specified site ==

== ENCOUNTER → 2025-01-28 | Outpatient (CLI) | payer MEDICARE, OTHER | LOC: M WHC 12:37 | PROVIDERS: ATTEND Family Medicine | DX: Z12.31 Encounter for screening mammogram for malignant neoplasm of breast (principal) ==

== ENCOUNTER → 2025-02-06 | Outpatient (REF) | payer MEDICARE, OTHER ==
[2025-02-06 18:18] LABS: PLATELET COUNT, AUTOMATED 200 10^3/uL (150-450)
[2025-02-06 18:35] LABS: ALT/SGPT 18 U/L (7.0-40); AST/SGOT 21 U/L (<34); CALCIUM LEVEL 9.3 MG/DL (8.3-10.6); CARBON DIOXIDE LEVEL 28 MMOL/L (20-31); CHLORIDE LEVEL 108 MMOL/L (98-107); CHOLESTEROL LEVEL 157 MG/DL (<200); CHOLESTEROL RISK RATIO 3.91 (<5); CREATININE FOR GFR 0.51 MG/DL (0.55-1.30); GLOMERULAR FILTRATION RATE > 90.0 (>39); LDL CHOLESTEROL 79.3 MG/DL (<100); NON-HDL-C 116.9 MG/DL; POTASSIUM SERUM 4.7 MMOL/L (3.5-5.1); SODIUM LEVEL 144 MMOL/L (136-145); TRIGLYCERIDES LEVEL 188 MG/DL (<150)
[2025-02-06 19:42] LABS: ESTIMATED AVERAGE GLUCOSE 137.0 MG/DL (60-110)
== END ==
LOC: M SFHCCLAY 11:38
PROVIDERS: ATTEND Family Medicine
DX: I10 Essential (primary) hypertension (principal); E11.9 Type 2 diabetes mellitus without complications; E78.5 Hyperlipidemia, unspecified; Z96.641 Presence of right artificial hip joint; M81.0 Age-related osteoporosis without current pathological fracture

== ENCOUNTER → 2025-02-09 | Outpatient (CLI) | payer MEDICARE, OTHER | LOC: M CLY 13:15 | PROVIDERS: ATTEND Family Medicine | DX: M25.552 Pain in left hip (principal) ==

== ENCOUNTER → 2025-02-27 | Outpatient (CLI) | payer MEDICARE, OTHER | LOC: M SOG 07:37 | PROVIDERS: ATTEND Physician Assistant | DX: Z96.641 Presence of right artificial hip joint (principal) ==

== ENCOUNTER → 2025-03-05 | Outpatient (CLI) | payer MEDICARE, OTHER | LOC: M WHC 10:56 | PROVIDERS: ATTEND Family Medicine | DX: M81.0 Age-related osteoporosis without current pathological fracture (principal) ==